=== PATIENT | female | born 1970 | race African-American/Black ===

== ENCOUNTER 2017-04-01 08:51 | Inpatient (IN) ==
[2017-04-01] MEDS ORDERED: HYDROmorphone 2 MG/1 ML VIAL IV STA ×2 (09:19→10:29)
[2017-04-01] MEDS ORDERED: ONDANSETRON 4 MG/2 ML VIAL IV STA (09:19)
[2017-04-01] MEDS ORDERED: HYDROmorphone 2 MG/1 ML VIAL ONE ×2 (09:32→10:31)
[2017-04-01] MEDS ORDERED: ONDANSETRON 4 MG/2 ML VIAL ONE (09:32)
[2017-04-01 10:05] LABS: Basophils % 0.3 % (0.0-0.8); Eosinophils % 0.5 % (0.00-10.9); Hematocrit 32.3 VOL% (35.7-47.0); Hemoglobin 10.4 GM/DL (12.0-16.0); Immature Granulocytes % 1.2 %; Immature Granulocytes Absolute 0.09 #; Lymphocytes # 0.8 10*3/uL (1.4-4.0); Lymphocytes % 10.4 % (21.3-54.2); Mean Corpuscular HGB Conc 32.2 GM/DL (32-36); Mean Corpuscular Hemoglobin 32 PG (27-34); Monocytes # 0.7 10*3/uL (0.11-0.8); Monocytes % 9.9 % (1.7-12.7); Neutrophils # 5.8 10*3/uL (1.4-7.4); Neutrophils % 77.7 % (38.7-73.9); Platelet Count 146 T/CUMM (130-400); Red Blood Count 3.23 MC/CUMM (3.8-5.5); Red Cell Distribution Width 15.9 % (9.3-17.3); White Blood Count 7.4 T/CUMM (4-12)
--- NOTE | 2017-04-01 10:06 | XRay Report ---
Portable chest Date: 04/01/2017 Clinical history: Generalized abdominal pain Comparison: 10/02/2014 Technique: Portable AP sitting chest Findings: The heart is borderline in size. Calcified granulomata/nodes with minimal atelectasis at the lung bases. Stable mediastinum and osseous structures. Impression: Old healed granulomatous disease. Minimal atelectasis at the lung bases. PROCEDURE INTERPRETED AT [facility] DEPARTMENT OF RADIOLOGY Final Report Signed by: Dr. Osiris Black
[2017-04-01 10:46] LABS: Albumin 2.6 G/DL (3.4-5.0); Bilirubin,Total 0.9 MG/DL (0.2-1.0); Calcium 8.6 MG/DL (8.5-10.1); Osmolality,Calculated 282.8 MOS/KG (273-304); Potassium 3.9 MMOL/L (3.5-5.1); Total Protein 5.6 G/DL (6.4-8.3)
--- NOTE | 2017-04-01 12:03 | Emergency Department Note ---
Oneil Galvez Brittany, am scribing for, and in the presence of, Greg Lewis MD 09:20. Joshua Galvez Doug C, MD, personally performed the services described in this documentation, ascribed by Denise Riggs in my presence, and it is both accurate and complete . Arrival - Arrival Chief Complaint: Abdominal / Flank Pain Stated Complaint: stomach pain, vomiting ED Nursing Triage Note: Lower abd pain onset x 2 days - nausea with no vomiting - pt is peritoneal dialysis daily Mode of Arrival: Wheelchair Limitations: No Limitations Source: Patient, RN Notes Reviewed Time Seen by Provider: 04/01/17 09:02 - History of Present Illness HPI Narrative: Patient's 47-year-old white female presents emergency room complaining of abdominal pain that began 2 days ago. Patient states the pain came steady last night and is associated with nausea, vomiting and diarrhea. Patient has not had any fever or chills associated with it. States she does have a prior history of pancreatitis but states this pain is different. Patient does have chronic renal failure is on chronic peritoneal dialysis and is never had peritonitis before. She states her last dialysis it was clear when she drained it. She is not seen any blood in her stool or melena. She has not had any hematemesis. She does have a past medical history of lupus. Onset (ago): day(s) (2) Consistency: constant Severity: moderate Severity scale (1-10): 6 Quality: sharp Date of Last Menstrual Period: celi Allergies/Adverse Reactions: Allergies Allergy/AdvReac Type Severity Reaction Status Date / Time Sulfa (Sulfonamide Allergy Mild ITCHING Verified 04/13/16 06:08 Antibiotics) dapsone AdvReac Severe PT STATES Verified 04/13/16 06:08 SHE HAD TO HAVE BLOOD TRANSFUSION AFTER TAKING Home Medications: Home Medications Medication Instructions Recorded Confirmed Type Metoprolol Tartrate 25 mg PO BID 02/12/15 04/01/17 History Omeprazole 20 mg PO QAM 02/12/15 04/01/17 History Biotin 10,000 mcg PO QAM 03/30/16 04/01/17 History fentaNYL [Fentanyl 25 mcg/hr Patch] 1 patch TRANSDERM Q3DAY 04/13/16 04/01/17 History ARIPiprazole [Aripiprazole] 5 mg PO BEDTIME 04/01/17 04/01/17 History Calcitriol 0.25 mcg PO TID 04/01/17 04/01/17 History Ferrous Fumarate [Ferrimin 150] 456 mg PO QAM 04/01/17 04/01/17 History Loratadine Tab [Claritin Tab] 10 mg PO BEDTIME PRN 04/01/17 04/01/17 History Melatonin 10 mg PO BEDTIME 04/01/17 04/01/17 History Oxycodone HCl [Oxycodone HCl] 10 mg PO TID PRN 04/01/17 04/01/17 History Prorenal D Tablet 1 tablet PO DAILY 04/01/17 04/01/17 History Sevelamer Carbonate Tab [Renvela 2,400 mg PO TID W/MEALS 04/01/17 04/01/17 History Tab] Sevelamer Carbonate Tab [Renvela 800 mg PO WITH SNACKS 04/01/17 04/01/17 History Tab] Vitamin E Acetate [Vitamin E] 1,000 unit PO QAM 04/01/17 04/01/17 History Vortioxetine Hydrobromide 10 mg PO BEDTIME 04/01/17 04/01/17 History [Trintellix] Zolpidem Tartrate [Zolpidem 12.5 mg PO BEDTIME 04/01/17 04/01/17 History Tartrate ER] predniSONE TAB [PredniSONE] 7.5 mg PO QAM 04/01/17 04/01/17 History Review of System - Review of System 12 point system: reviewed and no additional remarkable complaints except as stated - Review of System Constitutional: Present: fever. Absent: chills Eyes: Absent: vision change Head/Ears/Nose/Throat: Absent: nasal drainage, sore throat Respiratory: Absent: respiratory distress Cardiovascular: Absent: chest pain Gastrointestinal: Present: abdominal pain, nausea, diarrhea. Absent: vomiting, melena, hematochezia Genitourinary female: Absent: dysuria, frequency, urgency Musculoskeletal: Absent: arm pain, back pain, leg pain, neck pain Skin: Absent: rash Neurological: Absent: headache Psychiatric: Absent: anxiety, depression Hematological/Lymphatic: Absent: easy bleeding, easy bruising Medical,Surgical,& Family Hx - Medical History Cardio: History of: Hypertension Psychological: History of: Depression Neurology: History of: Peripheral Neuropathy No history of: Seizures HEENT: History of: Ear Problem (HEARING DIFFICULTY), Eye Problem (GLASSES) Rheumatology: History of;: Systemic Lupus Erythematosus Respiratory: History of: Pulmonary Hypertension (2014) Renal: History of: Dialysis (peritoneal), Renal Failure, Renal Problems (KIDNEY DISEASE;) Gastrointestinal: History of: GERD Musculoskeletal: History of: Osteoporosis Hematology: History of: Anemia, Clotting Problems (BLOOD CLOTS IN LUNG) Reproductive: History of: Reproductive Problems (1 MISSCARIAGE) Other: History of: Anesthesia Reactions (PT STATES SHE COULD NOT FEEL LEGS FOR 3 DAYS AFTER PAST ANESTHESIA) - Surgical History Abdominal Surgeries: Surgical HX of: Abdominal Surgery, Cholecystectomy Reproductive Surgeries: Surgical HX of;: Section (3 C SECTIONS), Dilation and Curettage, Genitourinary Surgery (KIDNEY BIOPSY), Gynecologic Surgery Orthopedic Surgeries: Surgical HX of;: Total Hip Replacement (LEFT HIP REVISION 2005, Right hip revision 2015) - Family History Family History: Reports;: Family Cancer (DAD), Family Heart Disease (MOM CHF), Family Hypertension (MOM AND DAD) - Social History Smoking Status: Never smoker Frequency of Alcohol Use: None Type of Drug Use: None Exam Vital Signs: Vital Signs Temperature 97.9 F 04/01/17 09:30 Pulse Rate 83 04/01/17 11:15 Respiratory Rate 18 04/01/17 11:15 Blood Pressure 165/100 04/01/17 11:15 O2 Sat by Pulse Oximetry 96 04/01/17 11:15 - General General appearance: alert, in distress (appears uncomfortable secondary to pain) - Head Head exam: Present: atraumatic, normocephalic, normal inspection - Eye Eye exam: Present: normal appearance, PERRL, EOMI - ENT ENT exam: Present: normal exam, normal oropharynx - Neck Neck exam: Present: normal inspection, full ROM, trachea midline - Chest Chest inspection: Present: normal inspection, symmetric chest wall rise - Respiratory Respiratory exam: Present: normal lung sounds bilaterally - Abdominal Exam Abdominal exam: Present: soft, tenderness (diffuse abdominal tenderness to palpation), diminished bowel sounds. Absent: distention, normal bowel sounds - Extremities Exam Extremities exam: Present: normal inspection - Back Exam Back exam: Present: normal inspection - Neurological Exam Neurological exam: Present: alert, oriented X3, CN II-XII intact. Absent: motor sensory deficit - Psychiatric Psychiatric exam: Present: normal affect, normal mood - Skin Skin exam: Present: warm, dry Course Course Narrative: Patient said clinical presentation, laboratory and radiographic findings were discussed with Orly who is covering the hospitalist service. Patient will be seen and evaluated for admission. Results - Labs CBC & BMP: 04/01/17 09:38 04/01/17 09:38 Lab Results: I have reviewed the patients labs Labs: Laboratory Tests 04/01/17 09:38 WBC 7.4 RBC 3.23 L Hgb 10.4 L Hct 32.3 L Plt Count 146 Neut % (Auto) 77.7 H Lymph % (Auto) 10.4 L Lymph # (Auto) 0.8 L Laboratory Tests 04/01/17 09:38 Sodium 137 Potassium 3.9 Chloride 98 Carbon Dioxide 31 Anion Gap 11.9 BUN 40 H Creatinine 10.70 H GFR Calculation 5 BUN/Creatinine Ratio 3.00 L Glucose 103 Calculated Osmolality 282.8 Lactic Acid 2.0 Calcium 8.6 Total Bilirubin 0.90 AST 19 ALT 26 Alkaline Phosphatase 140 H Total Protein 5.6 L Albumin 2.6 L Globulin 3.0 Albumin/Globulin Ratio 0.8 L Amylase 118 H Lipase 100.0 - Diagnostic Findings Procedure: Chest x-ray: report reviewed by me (Old healed granulomatous disease. Minimal atelectasis at the lung bases.), CT Abdomen and Pelvis: report reviewed by me (Ascitic fluid as to be expected with peritoneal dialysis. No evidence of obstruction seen.) Disposition Clinical Impression: Bacterial peritonitis Case discussed with: patient, patient's family Disposition: Still a Patient Condition: Stable Time of Disposition: 12:03
--- NOTE | 2017-04-01 12:15 | CT Report ---
Referring physician: Baljeet Lewis EXAM: CT abdomen and pelvis without contrast DATE: 04/01/2017 COMPARISON: 04/10/2008 REASON: Severe generalized abdominal pain TECHNIQUE: Axial images of the abdomen and pelvis were obtained without the use of contrast. Coronal and sagittal reformatted images were also provided. Total DLP is 580.70 mGy*cm. FINDINGS: Small pleural effusions with adjacent diffuse parenchymal findings. The liver is normal in size with no masses or dilated ducts in patient with prior cholecystectomy. The spleen is enlarged with a splenic index of 899. The pancreas and adrenal glands have an unremarkable appearance. Progressive cortical scarring in the kidneys with renal cysts with some noted to be hyperdense. 15 mm ringlike calcification in the lower pole of the left kidney with central cystic to solid attenuation measurements. No hydronephrosis or definite renal or ureteral calculi. Limited evaluation of the pelvis/urinary bladder due to streak artifact from the bilateral hip replacement. The abdominal aorta is normal in size with no adjacent adenopathy. No significant dilatation of the small bowel. No evidence of diverticulitis with suboptimal demonstration of the appendix. Peritoneal dialysis catheter entering the right abdominal location with the tip of the catheter projecting in the anterior left mid pelvis location. Diffuse fluid in the abdomen and pelvis with minimal free air. Additional finding in the anterior abdominal wall just to the right of midline at the level of the insertion of the peritoneal dialysis catheter. There is air-fluid level within this finding which measures 42 x 40 x 15 mm. The uterus is atrophic in size with suboptimal demonstration of the ovaries. Degenerative changes are noted. IMPRESSION: Small pleural effusions with adjacent atelectasis/infiltration. Prior cholecystectomy and bilateral hip replacement with minimal splenomegaly with a splenic index of 899. Progressive cortical scarring in the kidneys with small renal cysts. Some of the findings appear hyperdense. 15 mm indeterminate calcified lesion in the lower pole of the left kidney. Renal ultrasound may be helpful for further evaluation. Peritoneal dialysis catheter with significant fluid in the abdomen with minimal free air. These findings may be related to the peritoneal dialysis but it is difficult to exclude additional pathology. 42 x 40 x 15 mm soft tissue abnormality in the right anterior lower abdominal wall at the level of the insertion of the peritoneal dialysis catheter. There is an air-fluid level within this finding which can be seen with a superficial abscess. The CT exam was performed using one or more of the following dose reduction techniques: Automated exposure control and adjustment of the mA and/or kV according to patient size. PROCEDURE INTERPRETED AT [facility] DEPARTMENT OF RADIOLOGY Final Report Signed by: Dr. Osiris Black
[2017-04-01] MEDS ORDERED: ONDANSETRON 4 MG/2 ML VIAL IV PRN (12:19)
--- NOTE | 2017-04-01 13:22 | Hospitalist History & Physical ---
<Lisa Princeda - Last Filed: 04/01/17 13:20> Assessment and Plan (1) Bacterial peritonitis Status: Acute Assessment and plan: WBCs were noted at 7.4, however patient had a known notable left shift at 70 7. The patient is afebrile. There is no obvious signs of infection at the time of encounter. Nephrology has already been consult we will obtain peritoneal fluid and sent to lab for analysis per nephrology request. Current Visit: Yes (2) ESRD on peritoneal dialysis Status: Chronic Assessment and plan: The patient reported last peritoneal dialysis treatment on yesterday. She reports that it was uneventful. She reports that the fluid removal was clear. She reported that she had some abdominal pain prior to the start of the treatment however it gradually increased as the day progressed. We will consult nephrology to manage. Current Visit: No History of Present Illness Chief complaint: abdominal pain History of present illness: This is a very pleasant chronically ill 47-year-old female that presented to the ED at [facility] on this afternoon for the evaluation of abdominal pain. Patient has a history significant for: Hypertension, depression, peripheral neuropathy, systemic lupus erythematosus, renal failure, osteoporosis, anemia, pulmonary embolism, and GERD. Patient has a surgical history significant for: Cholecystectomy, section 3, dilatation and curettage, total hip replacement bilaterally, and peritoneal dialysis catheter placement. The patient reported the onset of symptoms 2 days prior to presentation. She is a current peritoneal dialysis patient and was last dialyzed on yesterday. She reported that her dialysis treatment was uneventful and that her fluid removal was clear. Pertinent positives include: Nausea, vomiting, and diarrhea; pertinent negatives include: fever, chills, and syncope. The patient reports a previous history of pancreatitis however does not attribute the symptoms that she is experiencing now to the one she experienced at that time. The pain became increasingly worse overnight; she became alarmed and subsequently presented to the ED for further evaluation. The patient was assessed at the time of ED presentation. Complete blood count was obtained which reported white blood cell count 7.4, hemoglobin 10.4, hematocrit 32.3, platelet count 146. Chemistry profile was obtained which reported his sodium at 137, potassium 3.9, chloride 98, carbon dioxide 31, anion gap 11.9, BUN 40, creatinine 10.70, glucose 103, lactic acid 2.0, calcium 8.6, alkaline phosphatase 140, total protein 5.6, albumin 2.6, amylase 118, lipase 100. Chest x-ray was obtained which reported old healed granulomatous disease and minimal atelectasis at the lung bases. CT abdomen and pelvis reported small pleural effusion with adjacent atelectasis/infiltration. Prior cholecystectomy and bilateral hip replacement with minimal splenomegaly with a splenic index of 899. Progressive cortical scarring in the kidneys with small renal cyst. 15 mm indeterminate calcified lesion in the lower pole of the left kidney. Peritoneal dialysis catheter was significant fluid in the abdomen and minimal free air. 42 x 40 x 15 mm soft tissue abnormality in the right anterior lower abdominal wall at the level of insertion of the peritoneal catheter which was a finding that is commonly associated with a superficial abscess. After brief discussion with and Dr. Rose, the patient will be admitted to the hospitalist services for continuation of care. We will consult nephrology to evaluate and assist during the clinical encounter. Home Medications Medication Instructions Recorded Confirmed Type Metoprolol Tartrate 25 mg PO BID 02/12/15 04/01/17 History Omeprazole 40 mg PO QAM 02/12/15 04/01/17 History Biotin 10,000 mcg PO QAM 03/30/16 04/01/17 History fentaNYL [Fentanyl 25 mcg/hr Patch] 1 patch TRANSDERM Q3DAY 04/13/16 04/01/17 History ARIPiprazole [Aripiprazole] 5 mg PO BEDTIME 04/01/17 04/01/17 History Calcitriol 0.25 mcg PO TID 04/01/17 04/01/17 History Ferrous Fumarate [Ferrimin 150] 456 mg PO QAM 04/01/17 04/01/17 History Loratadine Tab [Claritin Tab] 10 mg PO BEDTIME PRN 04/01/17 04/01/17 History Melatonin 10 mg PO BEDTIME 04/01/17 04/01/17 History Oxycodone HCl [Oxycodone HCl] 10 mg PO TID PRN 04/01/17 04/01/17 History Prorenal D Tablet 1 tablet PO DAILY 04/01/17 04/01/17 History Sevelamer Carbonate Tab [Renvela 2,400 mg PO TID W/MEALS 04/01/17 04/01/17 History Tab] Sevelamer Carbonate Tab [Renvela 800 mg PO WITH SNACKS 04/01/17 04/01/17 History Tab] Vitamin E Acetate [Vitamin E] 1,000 unit PO QAM 04/01/17 04/01/17 History Vortioxetine Hydrobromide 10 mg PO BEDTIME 04/01/17 04/01/17 History [Trintellix] Zolpidem Tartrate [Zolpidem 12.5 mg PO BEDTIME 04/01/17 04/01/17 History Tartrate ER] predniSONE TAB [PredniSONE] 7.5 mg PO QAM 04/01/17 04/01/17 History Allergies Allergy/AdvReac Type Severity Reaction Status Date / Time Sulfa (Sulfonamide Allergy Mild ITCHING Verified 04/13/16 06:08 Antibiotics) dapsone AdvReac Severe PT STATES Verified 04/13/16 06:08 SHE HAD TO HAVE BLOOD TRANSFUSION AFTER TAKING Medical,Surgical,& Family Hx - Medical History Cardio: History of: Hypertension Psychological: History of: Depression Neurology: History of: Peripheral Neuropathy No history of: Seizures HEENT: History of: Ear Problem (HEARING DIFFICULTY), Eye Problem (GLASSES) Rheumatology: History of;: Systemic Lupus Erythematosus Respiratory: History of: Pulmonary Hypertension (2013) Renal: History of: Dialysis (peritoneal), Renal Failure, Renal Problems (KIDNEY DISEASE;) Gastrointestinal: History of: GERD Musculoskeletal: History of: Osteoporosis Hematology: History of: Anemia, Clotting Problems (BLOOD CLOTS IN LUNG) Reproductive: History of: Reproductive Problems (1 MISSCARIAGE) Other: History of: Anesthesia Reactions (PT STATES SHE COULD NOT FEEL LEGS FOR 3 DAYS AFTER PAST ANESTHESIA) - Surgical History Abdominal Surgeries: Surgical HX of: Abdominal Surgery, Cholecystectomy Reproductive Surgeries: Surgical HX of;: Section (3 C SECTIONS), Dilation and Curettage, Genitourinary Surgery (KIDNEY BIOPSY), Gynecologic Surgery Orthopedic Surgeries: Surgical HX of;: Total Hip Replacement (LEFT HIP REVISION 2005, Right hip revision 2016) - Family History Family History: Reports;: Family Cancer (DAD), Family Heart Disease (MOM CHF), Family Hypertension (MOM AND DAD) - Social History Smoking Status: Never smoker Frequency of Alcohol Use: None Type of Drug Use: None Exam - Constitutional Vitals: Period Temp Pulse Resp BP Sys/Murdock Pulse Ox Last 24 Hr 97.9 F-97.9 F 79-88 18-20 145-184/99-119 95-100 General appearance: normal weight, mild distress - Head Head exam: Present: normal inspection, normocephalic, atraumatic - Eye Eye exam: Present: EOMI, conjunctival injection Pupils: Present: BECCA, normal accommodation - ENT ENT exam: Present: normal exam, normal external ear exam, normal oropharynx - Neck Neck exam: Present: normal inspection. Absent: lymphadenopathy, meningismus, tenderness - Respiratory Respiratory exam: Present: clear to auscultation bilaterally. Absent: rales, rhonchi, stridor - Cardiovascular Cardiovascular exam: Present: regular rate and rhythm. Absent: carotid bruit, diastolic murmur, gallop, JVD, rubs, systolic murmur - GI/Abdominal GI/Abdominal exam: Present: normal bowel sounds, tenderness, soft. Absent: rebound - Extremities Exam Extremities exam: Present: normal inspection, normal capillary refill, full ROM - Neurological Exam Neurological exam: Present: alert, oriented X3, CN II-XII intact - Psychiatric Psychiatric exam: Present: normal affect, normal mood - Skin Skin exam: Present: normal color, warm, dry Results - Labs CBC & BMP: 04/01/17 09:38 04/01/17 09:38 Lab Results: I have reviewed the past 24 hour labs <Jareth Rose - Last Filed: 04/01/17 15:49> History of Present Illness History of present illness: Patient seen and examined independently of MARY Prince, agree with history, assessment and plan as documented. Patient on PD admitted with abdominal pain. Questionable peritonitis. Afebrile with no leukocytosis. Peritoneal fluid pending. Nephrology on board. Will defer to nephrology for initiation of antibiotics if warranted. Patient is hypertensive, will restart home medications. Exam - Constitutional Vitals: Period Temp Pulse Resp BP Sys/Murdock Pulse Ox Last 24 Hr 97.9 F-97.9 F 79-88 18-20 145-184/99-119 95-100 Results - Labs CBC & BMP: 04/01/17 09:38 04/01/17 09:38
[2017-04-01] MEDS ORDERED: LORATADINE 10 MG TABLET PO PRN (14:27)
[2017-04-01] MEDS ORDERED: oxyCODONE IR 5 MG TABLET PO PRN (14:27)
[2017-04-01] MEDS ORDERED: SEVELAMER CARBONATE 800 MG TABLET PO SCH (14:30)
[2017-04-01] MEDS: METOPROLOL TARTRATE 25 MG TABLET PO SCH ×2 (14:47→21:01)
[2017-04-01] MEDS: ONDANSETRON 4 MG/2 ML VIAL IV PRN ×2 (14:47→20:08)
[2017-04-01] MEDS ORDERED: fentaNYL 25 MCG/HR PATCH TRANSDERM SCH (15:00)
[2017-04-01] MEDS ORDERED: MORPHINE 2 MG/1 ML SYRINGE IV PRN (16:06)
[2017-04-01] MEDS: SEVELAMER CARBONATE 800 MG TABLET PO SCH (16:41)
[2017-04-01] MEDS: HYDROmorphone 2 MG/1 ML VIAL IV PRN ×2 (17:37→22:36)
--- NOTE | 2017-04-01 20:02 | Nephrology Consult Note ---
History of Present Illness Chief complaint: ESRD ,abdominal pain History of present illness: Ms. Jin is a 47 year old female with ESRD. She is on peritoneal dialysis. She reports a 2 day history of abdominal pain nausea and diarrhea. She denies fever or chills. She denies pain during fill or drain cycles of PD. PD fluid has remained clear. No shortness of breath. Home Medications Medication Instructions Recorded Confirmed Type Metoprolol Tartrate 25 mg PO BID 02/12/15 04/01/17 History Omeprazole 40 mg PO QAM 02/12/15 04/01/17 History Biotin 10,000 mcg PO QAM 03/30/16 04/01/17 History fentaNYL [Fentanyl 25 mcg/hr Patch] 1 patch TRANSDERM Q3DAY 04/13/16 04/01/17 History ARIPiprazole [Aripiprazole] 5 mg PO BEDTIME 04/01/17 04/01/17 History Calcitriol 0.25 mcg PO TID 04/01/17 04/01/17 History Ferrous Fumarate [Ferrimin 150] 456 mg PO QAM 04/01/17 04/01/17 History Loratadine Tab [Claritin Tab] 10 mg PO BEDTIME PRN 04/01/17 04/01/17 History Melatonin 10 mg PO BEDTIME 04/01/17 04/01/17 History Oxycodone HCl [Oxycodone HCl] 10 mg PO TID PRN 04/01/17 04/01/17 History Prorenal D Tablet 1 tablet PO DAILY 04/01/17 04/01/17 History Sevelamer Carbonate Tab [Renvela 2,400 mg PO TID W/MEALS 04/01/17 04/01/17 History Tab] Sevelamer Carbonate Tab [Renvela 800 mg PO WITH SNACKS 04/01/17 04/01/17 History Tab] Vitamin E Acetate [Vitamin E] 1,000 unit PO QAM 04/01/17 04/01/17 History Vortioxetine Hydrobromide 10 mg PO BEDTIME 04/01/17 04/01/17 History [Trintellix] Zolpidem Tartrate [Zolpidem 12.5 mg PO BEDTIME 04/01/17 04/01/17 History Tartrate ER] predniSONE TAB [PredniSONE] 7.5 mg PO QAM 04/01/17 04/01/17 History Allergies Allergy/AdvReac Type Severity Reaction Status Date / Time Sulfa (Sulfonamide Allergy Mild ITCHING Verified 04/13/16 06:08 Antibiotics) dapsone AdvReac Severe PT STATES Verified 04/13/16 06:08 SHE HAD TO HAVE BLOOD TRANSFUSION AFTER TAKING Medical,Surgical,& Family Hx - Medical History Cardio: History of: Hypertension Psychological: History of: Depression Neurology: History of: Peripheral Neuropathy No history of: Seizures HEENT: History of: Ear Problem (HEARING DIFFICULTY), Eye Problem (GLASSES) Rheumatology: History of;: Systemic Lupus Erythematosus Respiratory: History of: Pulmonary Hypertension (2013) Renal: History of: Dialysis (peritoneal), Renal Failure, Renal Problems (KIDNEY DISEASE;) Gastrointestinal: History of: GERD Musculoskeletal: History of: Osteoporosis Hematology: History of: Anemia, Clotting Problems (BLOOD CLOTS IN LUNG) Reproductive: History of: Reproductive Problems (1 MISSCARIAGE) Other: History of: Anesthesia Reactions (PT STATES SHE COULD NOT FEEL LEGS FOR 3 DAYS AFTER PAST ANESTHESIA) - Surgical History Abdominal Surgeries: Surgical HX of: Abdominal Surgery, Cholecystectomy Reproductive Surgeries: Surgical HX of;: Section (3 C SECTIONS), Dilation and Curettage, Genitourinary Surgery (KIDNEY BIOPSY), Gynecologic Surgery Orthopedic Surgeries: Surgical HX of;: Total Hip Replacement (LEFT HIP REVISION 2005, Right hip revision 2016) - Family History Family History: Reports;: Family Cancer (DAD), Family Heart Disease (MOM CHF), Family Hypertension (MOM AND DAD) - Social History Smoking Status: Never smoker Frequency of Alcohol Use: None Type of Drug Use: None Review of Systems 12 point system: reviewed and no additional remarkable complaints except as stated Exam - Vital Signs Vital signs: Period Temp Pulse Resp BP Sys/Murdock Pulse Ox Last 24 Hr 97.9 F-99.3 F 79-88 18-20 145-184/97-119 95-100 Exam: Gen.: Alert and oriented x3. ENT: Pupils equal round reactive to light. EOMs intact. Mucous membranes moist. Neck: Supple. No JVD or bruit. Cardiovascular: Regular rate and rhythm. No murmur rub or gallop Lungs: Clear Abdomen: Soft. Mild diffuse tenderness. No rebound Extremities: No edema Results - Labs CBC & BMP: 04/01/17 09:38 04/01/17 09:38 Assessment and Plan (1) ESRD on peritoneal dialysis Status: Chronic Assessment and plan: 47-year-old woman with: * ESRD. Volume status normal. Continue peritoneal dialysis with 1.5% exchanges * Abdominal pain. She has no rebound tenderness. PD fluid white cell count 26. This is not clinically consistent with peritonitis. She likely has viral gastroenteritis. PD fluid culture is pending * Lupus * Hypertension Current Visit: No (2) Abdominal pain Status: Acute Current Visit: Yes (3) HTN (hypertension) Status: Acute Current Visit: No (4) Lupus Status: Acute Current Visit: No
[2017-04-01] MEDS ORDERED: ZALEPLON 5 MG CAPSULE PO SCH (21:00)
[2017-04-01] MEDS ORDERED: MELATONIN 3 MG TABLET PO SCH (21:00)
[2017-04-01] MEDS ORDERED: NON-FORMULARY MEDICATION (Vortioxetine Hydrobromide [Trintellix] 10 MG) PO SCH (21:00)
[2017-04-01] MEDS ORDERED: ARIPiprazole 5 MG TABLET PO SCH (21:00)
[2017-04-02] MEDS: HYDROmorphone 2 MG/1 ML VIAL IV PRN ×3 (03:30→15:51)
[2017-04-02] MEDS ORDERED: ACETAMINOPHEN 325 MG TABLET PO PRN (04:12)
[2017-04-02 04:26] LABS: Basophils % 0.3 % (0.0-0.8); Eosinophils % 0.3 % (0.00-10.9); Hematocrit 31.6 VOL% (35.7-47.0); Hemoglobin 9.9 GM/DL (12.0-16.0); Immature Granulocytes % 1.6 %; Immature Granulocytes Absolute 0.11 #; Lymphocytes # 1.4 10*3/uL (1.4-4.0); Lymphocytes % 21.4 % (21.3-54.2); Mean Corpuscular HGB Conc 31.3 GM/DL (32-36); Mean Corpuscular Hemoglobin 32 PG (27-34); Mean Corpuscular Volume 100.6 FL (87-102); Mean Platelet Volume 10.7 FL (9.6-12.0); Monocytes # 0.7 10*3/uL (0.11-0.8); Monocytes % 10.6 % (1.7-12.7); Neutrophils # 4.4 10*3/uL (1.4-7.4); Neutrophils % 65.8 % (38.7-73.9); Platelet Count 132 T/CUMM (130-400); Red Blood Count 3.14 MC/CUMM (3.8-5.5); Red Cell Distribution Width 15.9 % (9.3-17.3); White Blood Count 6.7 T/CUMM (4-12)
[2017-04-02 04:57] LABS: Albumin 2.2 G/DL (3.4-5.0); Bilirubin,Total 0.5 MG/DL (0.2-1.0); Calcium 7.8 MG/DL (8.5-10.1); Magnesium 1.5 MG/DL (1.8-2.4); Osmolality,Calculated 284.7 MOS/KG (273-304); Total Protein 4.8 G/DL (6.4-8.3)
[2017-04-02] MEDS: SEVELAMER CARBONATE 800 MG TABLET PO SCH ×2 (08:56→12:34)
[2017-04-02] MEDS: METOPROLOL TARTRATE 25 MG TABLET PO SCH (08:57)
[2017-04-02] MEDS ORDERED: PANTOPRAZOLE 40 MG TABLET PO SCH (09:00)
[2017-04-02] MEDS ORDERED: predniSONE 5 MG TABLET PO SCH (09:00)
[2017-04-02] MEDS ORDERED: FERROUS FUMARATE PO SCH (09:00)
--- NOTE | 2017-04-02 13:25 | Hospitalist Progress Note ---
Assessment and Plan (1) ESRD on peritoneal dialysis Status: Chronic Assessment and plan: Nephrology managing Undergoing PD during admission Current Visit: No (2) Abdominal pain Status: Acute Assessment and plan: Afebrile, no leukocytosis or left shift Cell count inconsistent with peritonitis Possible gastroenteritis Monitor for now Current Visit: Yes Hospitalist: Subjective Interval history: No acute events overnight. She reports that her abdominal pain is better, tolerable now. Nausea is resolved. Patient's temp did rise to 100.3, which is technically not a fever. Exam - Constitutional Vitals: Period Temp Pulse Resp BP Sys/Murdock Pulse Ox Last 24 Hr 98.4 F-100.3 F 66-86 18-20 104-163/73-97 96-100 General appearance: over weight - Head Head exam: Present: normocephalic, atraumatic - Eye Eye exam: Present: EOMI Pupils: Present: BECCA - ENT ENT exam: Present: normal exam - Neck Neck exam: Present: normal inspection - Respiratory Respiratory exam: Present: clear to auscultation bilaterally. Absent: wheezes - Cardiovascular Cardiovascular exam: Present: regular rate and rhythm - GI/Abdominal GI/Abdominal exam: Present: normal bowel sounds, soft. Absent: tenderness, rebound - Extremities Exam Extremities exam: Present: normal inspection - Back Exam Back exam: Present: normal inspection - Neurological Exam Neurological exam: Present: alert, oriented X3 - Psychiatric Psychiatric exam: Present: normal affect, normal mood - Skin Skin exam: Present: warm, intact Results - Labs CBC & BMP: 04/02/17 03:29 04/02/17 03:29
--- NOTE | 2017-04-02 14:06 | Nephrology Progress Note ---
Nephrology - PN: Subj Interval history: Ms. Jin is seen in follow-up of her end-stage renal disease on peritoneal dialysis. She presented with abdominal pain and peritonitis is been ruled out. The abdomen is much better today and she is feeling much better. Her abdomen is soft nontender. She has children in the room and her and hopes to be able to go home. As far as were concerned I think that would be reasonable. She can continue to follow up in the outpatient peritoneal dialysis clinic. Exam (PN)-Nephrology - Vital Signs Vital signs: Period Temp Pulse Resp BP Sys/Murdock Pulse Ox Last 24 Hr 98.4 F-100.3 F 66-86 18-20 104-163/73-97 96-100 - Lab 04/02/17 03:29 04/02/17 03:29 Most recent lab results Calcium 7.8 MG/DL (8.5-10.1) L 04/02/17 03:29 Magnesium 1.5 MG/DL (1.8-2.4) L 04/02/17 03:29
--- NOTE | 2017-04-02 14:39 | Discharge Summary ---
Hospital Course - Hospital Course Hospital Course: 47-year-old female that presented to the ED at [facility] for the evaluation of abdominal pain. Patient has a history significant for: Hypertension, depression, peripheral neuropathy, systemic lupus erythematosus, renal failure, osteoporosis, anemia, pulmonary embolism, and GERD. Patient has a surgical history significant for: Cholecystectomy, section 3, dilatation and curettage, total hip replacement bilaterally, and peritoneal dialysis catheter placement. The patient reported the onset of symptoms 2 days prior to presentation. She is a current peritoneal dialysis patient and was last dialyzed the day prior. She reported that her dialysis treatment was uneventful and that her fluid removal was clear. Pertinent positives include: Nausea, vomiting, and diarrhea; pertinent negatives include: fever, chills, and syncope. The patient reported a previous history of pancreatitis however does not attribute the symptoms that she is experiencing now to the ones she experienced at that time. The pain became increasingly worse overnight; she became alarmed and subsequently presented to the ED for further evaluation. The patient was assessed at the time of ED presentation. Complete blood count was obtained which reported white blood cell count 7.4, hemoglobin 10.4, hematocrit 32.3, platelet count 146. Chemistry profile was obtained which reported his sodium at 137, potassium 3.9, chloride 98, carbon dioxide 31, anion gap 11.9, BUN 40, creatinine 10.70, glucose 103, lactic acid 2.0, calcium 8.6, alkaline phosphatase 140, total protein 5.6, albumin 2.6, amylase 118, lipase 100. Chest x-ray was obtained which reported old healed granulomatous disease and minimal atelectasis at the lung bases. CT abdomen and pelvis reported small pleural effusion with adjacent atelectasis/infiltration. Prior cholecystectomy and bilateral hip replacement with minimal splenomegaly with a splenic index of 899. Progressive cortical scarring in the kidneys with small renal cyst. 15 mm indeterminate calcified lesion in the lower pole of the left kidney. Peritoneal dialysis catheter was significant fluid in the abdomen and minimal free air. 42 x 40 x 15 mm soft tissue abnormality in the right anterior lower abdominal wall at the level of insertion of the peritoneal catheter. Patient was admitted to the hospitalist service for abdominal pain to rule out peritonitis. She remained afebrile without leukocytosis. Peritoneal fluid was obtained and was not consistent with an infectious process. Today patient is doing much better with improvement in abdominal pain and resolution of nausea. She is tolerating a diet without incidence. Her symptoms were most likely related to gastroenteritis. She has now reached maximal benefit of inpatient stay and will be discharged home. - Time spent with patient Time with patient DS: Less than 30 minutes (28) Diagnosis - Discharge Diagnosis (1) ESRD on peritoneal dialysis Status: Chronic (2) Abdominal pain Status: Resolved Discharge Plan - Discharge Data Disposition: Disch To Home/Self Care Condition at Discharge: Stable Discharge Diet: low salt diet Activity: resume usual activities as tolerated Hygiene: no restrictions Weight Bearing at Discharge: weight bear as tolerated Driving: no restrictions Contact your physician if you experience:: fever over 101, pain uncontrolled by pain medications - Discharge Medications Continue Omeprazole 40 mg PO QAM Metoprolol Tartrate 25 mg PO BID Biotin 10,000 mcg PO QAM fentaNYL [Fentanyl 25 mcg/hr Patch] 1 patch TRANSDERM Q3DAY ARIPiprazole [Aripiprazole] 5 mg PO BEDTIME Calcitriol 0.25 mcg PO TID Ferrous Fumarate [Ferrimin 150] 456 mg PO QAM Loratadine Tab [Claritin Tab] 10 mg PO BEDTIME PRN PRN Reason: Allergy Symptoms Melatonin 10 mg PO BEDTIME predniSONE TAB [PredniSONE] 7.5 mg PO QAM Prorenal D Tablet 1 tablet PO DAILY Sevelamer Carbonate Tab [Renvela Tab] 800 mg PO WITH SNACKS Sevelamer Carbonate Tab [Renvela Tab] 2,400 mg PO TID W/MEALS Vitamin E Acetate [Vitamin E] 1,000 unit PO QAM Zolpidem Tartrate [Zolpidem Tartrate ER] 12.5 mg PO BEDTIME Oxycodone HCl 10 mg PO TID PRN PRN Reason: Pain Vortioxetine Hydrobromide [Trintellix] 10 mg PO BEDTIME - Follow Up or Referral - Forms/Instructions Exam - Constitutional Vitals: Period Temp Pulse Resp BP Sys/Murdock Pulse Ox Last 24 Hr 98.4 F-100.3 F 66-86 18-20 104-163/73-97 96-100 General appearance: normal weight - Head Head exam: Present: normocephalic, atraumatic - Eye Eye exam: Present: EOMI Pupils: Present: BECCA - ENT ENT exam: Present: normal exam - Neck Neck exam: Present: normal inspection - Respiratory Respiratory exam: Present: clear to auscultation bilaterally. Absent: rhonchi, wheezes - Cardiovascular Cardiovascular exam: Present: regular rate and rhythm - GI/Abdominal GI/Abdominal exam: Present: normal bowel sounds, soft. Absent: tenderness, rebound - Extremities Exam Extremities exam: Present: normal inspection - Back Exam Back exam: Present: normal inspection - Neurological Exam Neurological exam: Present: alert, oriented X3 - Psychiatric Psychiatric exam: Present: normal affect, normal mood - Skin Skin exam: Present: warm, intact Discharge Results Procedures and tests throughout hospitalization: Pending Orders 04/01/17 09:38 Blood Culture Stat 04/01/17 12:47 Body Fluid Cult and Gram Stain Stat 04/03/17 04:00 Basic Metabolic Panel w/Mg IN AM Comp Blood Count Auto Diff IN AM Labs on day of discharge: Labs from last 24 hours 04/02/17 04/02/17 03:29 03:29 WBC 6.7 RBC 3.14 L Hgb 9.9 L Hct 31.6 L MCV 100.6 MCH 32 MCHC 31.3 L RDW 15.9 Plt Count 132 MPV 10.7 Neut % (Auto) 65.8 Lymph % (Auto) 21.4 [place] % (Auto) 10.6 Eos % (Auto) 0.3 Baso % (Auto) 0.3 Neut # (Auto) 4.4 Lymph # (Auto) 1.4 [place] # (Auto) 0.7 Eos # (Auto) 0.0 Baso # (Auto) 0.0 Immature Gran % 1.6 Nucleated RBC % 0.0 Immature Gran # 0.11 Nucleated RBCs # 0.00 Sodium 138 Potassium 4.0 Chloride 98 Carbon Dioxide 31 Anion Gap 13.0 BUN 40 H Creatinine 10.60 H GFR Calculation 5 BUN/Creatinine Ratio 3.00 L Glucose 92 Calculated Osmolality 284.7 Calcium 7.8 L Magnesium 1.5 L Total Bilirubin 0.50 AST 20 ALT 25 Alkaline Phosphatase 127 H Total Protein 4.8 L Albumin 2.2 L Globulin 2.6 Albumin/Globulin Ratio 0.8 L Preliminary micro results at discharge 04/01/17 09:38 Blood Culture - Preliminary Blood No growth at 1 day 04/01/17 09:38 Blood Culture - Preliminary Blood No growth at 1 day 04/01/17 12:47 Body Fluid Culture - Preliminary Peritoneal Fluid - Peritoneal No growth at 24 hours DS: Provider Date of admission: 04/01/17 12:04 Primary care physician: . No PCP Attending physician on admission: Jareth Rose MD Consults: 04/01/17 12:11 Consult to Physician [CONS] Routine Comment: Consulting Provider: Trevor Mei When should Consulting Provider be notified: Now Person Notified: RAYNE Date Notified: 04/02/17 Time Notified: 09:00 Discharging clinician: Jareth Rose MD
[2017-04-02 16:38] VITALS: BP 131/73
[2017-04-03] MEDS ORDERED: MULTIVITAMIN (BEROCCA) TABLET PO SCH (09:00)
== END 2017-04-02 17:04 | disposition home or self-care (01) | DRG 391 ==
LOC: N.ED 08:51 → N.EDINP 12:04 → N.5E 13:24
PROVIDERS: ADMIT Internal Medicine; ATTEND Internal Medicine

== ENCOUNTER 2017-07-03 17:25 | Observation (INO) ==
[2017-07-03] MEDS ORDERED: MORPHINE 2 MG/1 ML SYRINGE IV STA (19:11)
[2017-07-03] MEDS ORDERED: NITROGLYCERIN 2% OINT 1 INCH/GM PACK TOP STA (19:11)
[2017-07-03] MEDS ORDERED: ASPIRIN 325 MG TABLET PO STA (19:11)
[2017-07-03] MEDS ORDERED: methylPREDNISolone SOD SUC 125 MG/2 ML VIAL IV STA (19:11)
[2017-07-03] MEDS ORDERED: ALUM/MAG/SIMETH/LIDO VISC 1:1 30 ML BOTTLE PO STA (19:11)
[2017-07-03] MEDS ORDERED: ONDANSETRON 4 MG/2 ML VIAL IV STA (19:11)
[2017-07-03 19:22] LABS: Basophils % 0.4 % (0.0-0.8); Eosinophils # 0.3 10*3/uL (0.0-0.87); Eosinophils % 2.8 % (0.00-10.9); Hematocrit 38.5 VOL% (35.7-47.0); Hemoglobin 11.2 GM/DL (12.0-16.0); Immature Granulocytes % 1.3 %; Immature Granulocytes Absolute 0.14 #; Lymphocytes # 1.9 10*3/uL (1.4-4.0); Lymphocytes % 17.2 % (21.3-54.2); Mean Corpuscular HGB Conc 29.1 GM/DL (32-36); Mean Corpuscular Hemoglobin 26 PG (27-34); Mean Corpuscular Volume 88.7 FL (87-102); Mean Platelet Volume 11.2 FL (9.6-12.0); Monocytes # 0.5 10*3/uL (0.11-0.8); Monocytes % 4.4 % (1.7-12.7); NRBC # 0.02 10*3/uL; Neutrophils % 73.9 % (38.7-73.9); Platelet Count 239 T/CUMM (130-400); Red Blood Count 4.34 MC/CUMM (3.8-5.5); Red Cell Distribution Width 19.3 % (9.3-17.3); White Blood Count 10.8 T/CUMM (4-12)
--- NOTE | 2017-07-03 19:29 | Emergency Department Note ---
Keegan Galvez Gwan, am scribing for, and in the presence of, Layo Lockhart MD 19 :26. Richy Galvez Charles R, MD, personally performed the services described in this documentation, ascribed by Tyrell Allison in my presence, and it is both accurate and complete 929 . Arrival - Arrival Chief Complaint: Chest Pain Stated Complaint: Chest Pain ED Nursing Triage Note: c/o sharp pain across chest onset 6 days ago. worse with laying down Mode of Arrival: Ambulatory Limitations: No Limitations Source: Patient, Old Records Reviewed, RN Notes Reviewed Time Seen by Provider: 07/03/17 19:03 - History of Present Illness HPI Narrative: Patient is a 47 y/o female, with a hx of Lupus and renal failure, who presents to the ED with a c/o chest pain with an onset of 6 days ago. Patient stated that pain is exacerbated with laying flat and deep inspirations. Patient said that her pain is located across the center of her chest, that the pain feels more "deep inside" and that she has also had associated SOB. Patient confirmed that she is on dialysis (M/W/F), that she was compliant with tx yesterday and that she changed her dosage of Prednisone from 5mg to 20mg with no relief of chest pain. Patient denies a bad taste in her mouth, nausea, diaphoresis, any heart problems or taking a low dose ASA daily. Patient is followed by Dr. Diehl. During exam, pt did not appear to be in any acute distress but stated that she is currently having chest pain. No other problems/complaints reported in ED. Onset (ago): day(s) Consistency: constant Severity: moderate Allergies/Adverse Reactions: Allergies Allergy/AdvReac Type Severity Reaction Status Date / Time Sulfa (Sulfonamide Allergy Mild ITCHING Verified 04/13/16 06:08 Antibiotics) dapsone AdvReac Severe PT STATES Verified 04/13/16 06:08 SHE HAD TO HAVE BLOOD TRANSFUSION AFTER TAKING Home Medications: Home Medications Medication Instructions Recorded Confirmed Type Metoprolol Tartrate 25 mg PO BID 02/12/15 07/03/17 History Omeprazole 40 mg PO QAM 02/12/15 07/03/17 History Biotin 10,000 mcg PO QAM 03/30/16 07/03/17 History fentaNYL [Fentanyl 25 mcg/hr Patch] 1 patch TRANSDERM Q3DAY 04/13/16 07/03/17 History ARIPiprazole [Aripiprazole] 5 mg PO BEDTIME 04/01/17 07/03/17 History Calcitriol 0.25 mcg PO TID 04/01/17 07/03/17 History Ferrous Fumarate [Ferrimin 150] 456 mg PO QAM 04/01/17 07/03/17 History Loratadine Tab [Claritin Tab] 10 mg PO QAM PRN 04/01/17 07/03/17 History Melatonin 10 mg PO BEDTIME 04/01/17 07/03/17 History Oxycodone HCl 10 mg PO TID PRN 04/01/17 07/03/17 History Prorenal D Tablet 1 tablet PO QAM 04/01/17 07/03/17 History Sevelamer Carbonate Tab [Renvela 2,400 mg PO TID W/MEALS 04/01/17 07/03/17 History Tab] Sevelamer Carbonate Tab [Renvela 800 mg PO WITH SNACKS 04/01/17 07/03/17 History Tab] Vortioxetine Hydrobromide 10 mg PO BEDTIME 04/01/17 07/03/17 History [Trintellix] Zolpidem Tartrate [Zolpidem 12.5 mg PO BEDTIME 04/01/17 07/03/17 History Tartrate ER] Doxepin HCl [Silenor] 3 mg PO BEDTIME 07/03/17 07/03/17 History NIFEdipine [Nifedipine ER] 30 mg PO QAM 07/03/17 07/03/17 History predniSONE TAB [PredniSONE] 5 mg PO QAM 07/03/17 07/03/17 History Review of System - Review of System 12 point system: reviewed and no additional remarkable complaints except as stated - Review of System Cardiovascular: Present: as per HPI, chest pain Gastrointestinal: Present: as per HPI. Absent: nausea, vomiting, diarrhea Medical,Surgical,& Family Hx - Medical History Cardio: History of: Hypertension Psychological: History of: Depression Neurology: History of: Peripheral Neuropathy No history of: Seizures HEENT: History of: Ear Problem (HEARING DIFFICULTY), Eye Problem (GLASSES) Rheumatology: History of;: Systemic Lupus Erythematosus Respiratory: History of: Pulmonary Hypertension (2013) Renal: History of: Dialysis (peritoneal), Renal Failure, Renal Problems (KIDNEY DISEASE;) Gastrointestinal: History of: GERD Musculoskeletal: History of: Osteoporosis Hematology: History of: Anemia, Clotting Problems (BLOOD CLOTS IN LUNG) Reproductive: History of: Reproductive Problems (1 MISSCARIAGE) Other: History of: Anesthesia Reactions (PT STATES SHE COULD NOT FEEL LEGS FOR 3 DAYS AFTER PAST ANESTHESIA) - Surgical History Abdominal Surgeries: Surgical HX of: Abdominal Surgery, Cholecystectomy Reproductive Surgeries: Surgical HX of;: Section (3 C SECTIONS), Dilation and Curettage, Genitourinary Surgery (KIDNEY BIOPSY), Gynecologic Surgery Orthopedic Surgeries: Surgical HX of;: Total Hip Replacement (LEFT HIP REVISION 2005, Right hip revision 2015) - Family History Family History: Reports;: Family Cancer (DAD), Family Heart Disease (MOM CHF), Family Hypertension (MOM AND DAD) - Social History Smoking Status: Never smoker Frequency of Alcohol Use: None Type of Drug Use: None Exam Vital Signs: Vital Signs Temperature 97.7 F 07/03/17 17:39 Pulse Rate 85 07/03/17 17:39 Respiratory Rate 18 07/03/17 17:39 Blood Pressure 147/101 07/03/17 17:39 O2 Sat by Pulse Oximetry 100 07/03/17 17:39 - General General appearance: alert, in no apparent distress - Head Head exam: Present: atraumatic, normocephalic - Eye Eye exam: Present: normal appearance, PERRL, EOMI - ENT ENT exam: Present: normal oropharynx, mucous membranes moist, TM's normal bilaterally, normal external ear exam - Neck Neck exam: Present: full ROM, trachea midline. Absent: tenderness - Chest Chest inspection: Present: symmetric chest wall rise, tenderness (Patient had reproducible chest wall tenderness. ) - Respiratory Respiratory exam: Present: normal lung sounds bilaterally. Absent: respiratory distress - Cardiovascular Cardiovascular exam: Present: regular rate, normal rhythm, normal heart sounds. Absent: murmur - Abdominal Exam Abdominal exam: Present: soft, normal bowel sounds. Absent: distention, tenderness - Extremities Exam Extremities exam: Present: full ROM. Absent: tenderness - Back Exam Back exam: Present: full ROM. Absent: tenderness - Neurological Exam Neurological exam: Present: alert, oriented X3, CN II-XII intact. Absent: motor sensory deficit - Psychiatric Psychiatric exam: Present: normal affect, normal mood - Skin Skin exam: Present: warm, dry, intact, normal color Course - Consultations Consultation #1: Hospitalist will admit patient Time: 20:35 Results - Labs CBC & BMP: 07/03/17 18:34 07/03/17 18:34 Lab Results: I have reviewed the patients labs Labs: Laboratory Tests 07/03/17 07/03/17 07/03/17 18:34 18:34 18:34 WBC 10.8 RBC 4.34 Hgb 11.2 L Hct 38.5 MCH 26 L MCHC 29.1 L RDW 19.3 H Plt Count 239 Lymph % (Auto) 17.2 L Neut # (Auto) 8.0 H INR 1.0 PT Patient/Control Mix 10.4 D-Dimer, Quantitative 2.0 Sodium 137 Potassium 3.9 Chloride 100 Carbon Dioxide 26 BUN 23 H Creatinine 5.60 H BUN/Creatinine Ratio 4.00 L Calcium 10.5 H ALT 12 L Alkaline Phosphatase 171 H Albumin 2.8 L Globulin 3.8 H Albumin/Globulin Ratio 0.7 L Lipase 210.0 Laboratory Tests 07/03/17 18:34 B-Natriuretic Peptide 639 H - Diagnostic Findings Procedure: Chest x-ray: report reviewed by me (No acute cardiopulmonary findings. ) Disposition Clinical Impression: Chest pain, Chronic renal failure, Lupus, ESRD (end-stage renal disease) due to SLE, ESRD (end stage renal disease) on dialysis, Hypertensive urgency Case discussed with: patient, patient's family Disposition: Still a Patient Condition: Stable Time of Disposition: 20:38
[2017-07-03 19:31] LABS: Albumin 2.8 G/DL (3.4-5.0); Bilirubin,Total 0.5 MG/DL (0.2-1.0); Calcium 10.5 MG/DL (8.5-10.1); Osmolality,Calculated 276.8 MOS/KG (273-304); Potassium 3.9 MMOL/L (3.5-5.1); Total Protein 6.6 G/DL (6.4-8.3)
[2017-07-03 19:32] LABS: PT Patient Result 10.4 SECS
[2017-07-03] MEDS ORDERED: NITROGLYCERIN 2% OINT 1 INCH/GM PACK TOP ONE (19:37)
[2017-07-03] MEDS ORDERED: ONDANSETRON 4 MG/2 ML VIAL ONE (19:38)
[2017-07-03] MEDS ORDERED: ALUM/MAG/SIMETH/LIDO VISC 1:1 30 ML BOTTLE PO ONE (19:38)
[2017-07-03] MEDS ORDERED: ASPIRIN 325 MG TABLET ONE (19:38)
[2017-07-03] MEDS ORDERED: MORPHINE 2 MG/1 ML SYRINGE ONE (19:38)
[2017-07-03] MEDS ORDERED: methylPREDNISolone SOD SUC 125 MG/2 ML VIAL ONE (19:38)
--- NOTE | 2017-07-03 20:19 | XRay Report ---
2 view chest 07/03/2017 7: 49 PM Indication: Chest pain Comparison: April 01, 2017 Findings: Cardiomediastinal contours are stable. Interval dual-lumen central venous catheter has been placed in satisfactory position from right subclavian approach. Lungs are clear bilaterally. . No acute osseous abnormalities. Visualized upper abdomen demonstrates no acute pathology. Impression: No acute cardiopulmonary findings PROCEDURE INTERPRETED AT [facility] DEPARTMENT OF RADIOLOGY Final Report Signed by: Clarence Montenegro MD
[2017-07-03] MEDS ORDERED: hydrALAZINE 20 MG/1 ML VIAL IV STA (20:38)
[2017-07-03] MEDS ORDERED: ONDANSETRON 4 MG/2 ML VIAL IV PRN (20:47)
[2017-07-03] MEDS ORDERED: oxyCODONE IR 5 MG TABLET PO PRN (20:51)
[2017-07-03] MEDS ORDERED: LORATADINE 10 MG TABLET PO PRN (20:51)
[2017-07-03] MEDS ORDERED: NON-FORMULARY MEDICATION (Melatonin [Melatonin] 10 MG) PO SCH (21:00)
[2017-07-03] MEDS ORDERED: ZALEPLON 5 MG CAPSULE PO SCH (21:00)
[2017-07-03] MEDS ORDERED: ARIPiprazole 5 MG TABLET PO SCH (21:00)
[2017-07-03] MEDS ORDERED: NON-FORMULARY MEDICATION (Vortioxetine Hydrobromide [Trintellix] 10 MG) PO SCH (21:00)
[2017-07-03] MEDS ORDERED: NON-FORMULARY MEDICATION (Doxepin Hcl [Silenor] 3 MG) PO SCH (21:00)
[2017-07-03] MEDS ORDERED: SEVELAMER CARBONATE 800 MG TABLET PO SCH (21:00)
--- NOTE | 2017-07-03 21:18 | Hospitalist History & Physical ---
Assessment and Plan (1) Chest pain Status: Acute Current Visit: Yes (2) Chronic renal failure Status: Acute Current Visit: Yes (3) ESRD (end stage renal disease) on dialysis Status: Acute Current Visit: Yes (4) ESRD (end-stage renal disease) due to SLE Status: Acute Current Visit: Yes (5) HTN (hypertension) Status: Acute Assessment and plan: Our plan for this patient will be admitting her to our service. Patient be placed on monitored bed. Her symptoms sound very atypical but her risk factors are significant giving that she has lupus and end-stage renal disease. Her mom developed cardiac issues in her 50s patient is in her 40s. I feel that it would be appropriate to admit her and have cardiology see her. We will also consult nephrology to schedule her dialysis which occurs Sunday. Plan was discussed with patient and she are in agreement. Patient will be reevaluated in the morning Current Visit: No History of Present Illness Chief complaint: Chest pain History of present illness: Ms. Jin is a 47 year old female with past medical history of end-stage renal disease, lupus, hypertension and fibromyalgia who is her normal state of health of the past 6 days. Patient reports that time she developed chest pain. She says that it gets her short of breath when she lays down. She denies diaphoresis. She says the pain is constant and consistent with no exertional component. She has had costochondritis in the past before but this is different she says it has has never felt like this before. She initially thought she had pulled a muscle did not really want to think about cardiac. Her mother started developing cardiac problems in her 50s I was consulted to admit the patient to the emergency room Home Medications Medication Instructions Recorded Confirmed Type Metoprolol Tartrate 25 mg PO BID 02/12/15 07/03/17 History Omeprazole 40 mg PO QAM 02/12/15 07/03/17 History Biotin 10,000 mcg PO QAM 03/30/16 07/03/17 History fentaNYL [Fentanyl 25 mcg/hr Patch] 1 patch TRANSDERM Q3DAY 04/13/16 07/03/17 History ARIPiprazole [Aripiprazole] 5 mg PO BEDTIME 04/01/17 07/03/17 History Calcitriol 0.25 mcg PO TID 04/01/17 07/03/17 History Ferrous Fumarate [Ferrimin 150] 456 mg PO QAM 04/01/17 07/03/17 History Loratadine Tab [Claritin Tab] 10 mg PO QAM PRN 04/01/17 07/03/17 History Melatonin 10 mg PO BEDTIME 04/01/17 07/03/17 History Oxycodone HCl 10 mg PO TID PRN 04/01/17 07/03/17 History Prorenal D Tablet 1 tablet PO QAM 04/01/17 07/03/17 History Sevelamer Carbonate Tab [Renvela 2,400 mg PO TID W/MEALS 04/01/17 07/03/17 History Tab] Sevelamer Carbonate Tab [Renvela 800 mg PO WITH SNACKS 04/01/17 07/03/17 History Tab] Vortioxetine Hydrobromide 10 mg PO BEDTIME 04/01/17 07/03/17 History [Trintellix] Zolpidem Tartrate [Zolpidem 12.5 mg PO BEDTIME 04/01/17 07/03/17 History Tartrate ER] Doxepin HCl [Silenor] 3 mg PO BEDTIME 07/03/17 07/03/17 History NIFEdipine [Nifedipine ER] 30 mg PO QAM 07/03/17 07/03/17 History predniSONE TAB [PredniSONE] 5 mg PO QAM 07/03/17 07/03/17 History Allergies Allergy/AdvReac Type Severity Reaction Status Date / Time Sulfa (Sulfonamide Allergy Mild ITCHING Verified 04/13/16 06:08 Antibiotics) dapsone AdvReac Severe PT STATES Verified 04/13/16 06:08 SHE HAD TO HAVE BLOOD TRANSFUSION AFTER TAKING Medical,Surgical,& Family Hx - Medical History Cardio: History of: Hypertension Psychological: History of: Depression Neurology: History of: Peripheral Neuropathy No history of: Seizures HEENT: History of: Ear Problem (HEARING DIFFICULTY), Eye Problem (GLASSES) Rheumatology: History of;: Systemic Lupus Erythematosus Respiratory: History of: Pulmonary Hypertension (2013) Renal: History of: Dialysis (peritoneal), Renal Failure, Renal Problems (KIDNEY DISEASE;) Gastrointestinal: History of: GERD Musculoskeletal: History of: Osteoporosis Hematology: History of: Anemia, Clotting Problems (BLOOD CLOTS IN LUNG) Reproductive: History of: Reproductive Problems (1 MISSCARIAGE) Other: History of: Anesthesia Reactions (PT STATES SHE COULD NOT FEEL LEGS FOR 3 DAYS AFTER PAST ANESTHESIA) - Surgical History Abdominal Surgeries: Surgical HX of: Abdominal Surgery, Cholecystectomy Reproductive Surgeries: Surgical HX of;: Section (3 C SECTIONS), Dilation and Curettage, Genitourinary Surgery (KIDNEY BIOPSY), Gynecologic Surgery Orthopedic Surgeries: Surgical HX of;: Total Hip Replacement (LEFT HIP REVISION 2006, Right hip revision 2016) - Family History Family History: Reports;: Family Cancer (DAD), Family Heart Disease (MOM CHF), Family Hypertension (MOM AND DAD) - Social History Smoking Status: Never smoker Frequency of Alcohol Use: None Type of Drug Use: None 12 point system: reviewed and no additional remarkable complaints except as stated Exam - Constitutional Vitals: Period Temp Pulse Resp BP Sys/Murdock Pulse Ox Last 24 Hr 97.7 F-97.7 F 72-85 18-22 147-164/101-109 100 - General General appearance: alert, in no apparent distress - Head Head exam: Present: atraumatic, normocephalic - Eye Eye exam: Present: normal appearance, PERRL, EOMI - ENT ENT exam: Present: normal oropharynx, mucous membranes moist, TM's normal bilaterally, normal external ear exam - Neck Neck exam: Present: full ROM, trachea midline. Absent: tenderness - Chest Chest inspection: Present: symmetric chest wall rise, tenderness to palpation - Respiratory Respiratory exam: Present: normal lung sounds bilaterally. Absent: respiratory distress - Cardiovascular Cardiovascular exam: Present: regular rate, normal rhythm, normal heart sounds. - Abdominal Exam Abdominal exam: Present: soft, normal bowel sounds. - Extremities Exam Extremities exam: Present: full ROM. Absent: tenderness - Back Exam Back exam: Present: full ROM. Absent: tenderness - Neurological Exam Neurological exam: Present: alert, oriented X3, CN II-XII intact. - Psychiatric Psychiatric exam: Present: normal affect, normal mood - Skin Skin exam: Present: warm, dry, intact, normal color Results - Labs CBC & BMP: 07/03/17 18:34 07/03/17 18:34
[2017-07-03] MEDS ORDERED: ENOXAPARIN 30 MG/0.3 ML SYRINGE SUBCUT SCH (22:00)
[2017-07-03] MEDS ORDERED: hydrALAZINE 20 MG/1 ML VIAL ONE (22:35)
[2017-07-03 23:00] LABS: Risk Ratio 2.22; VLDL CHOLESTEROL 30.6 MG/DL
[2017-07-03] MEDS: CALCITRIOL 0.25 MCG CAPSULE PO SCH (23:11)
[2017-07-03] MEDS: METOPROLOL TARTRATE 25 MG TABLET PO SCH (23:11)
--- NOTE | 2017-07-03 23:21 | Order Completion Report ---
See report scanned to EMR
[2017-07-04] MEDS: NITROGLYCERIN 2% OINT 1 INCH/GM PACK TOP SCH ×2 (00:07→07:13)
[2017-07-04] MEDS ORDERED: guaiFENesin 200 MG/10 ML UDCUP PO PRN (00:08)
--- NOTE | 2017-07-04 02:07 | Order Completion Report ---
See report scanned to EMR
[2017-07-04 07:48] VITALS: BP 137/73
[2017-07-04] MEDS ORDERED: SEVELAMER CARBONATE 800 MG TABLET PO SCH (08:00)
[2017-07-04] MEDS ORDERED: PANTOPRAZOLE 40 MG TABLET PO SCH (09:00)
[2017-07-04] MEDS ORDERED: predniSONE 5 MG TABLET PO SCH (09:00)
[2017-07-04] MEDS ORDERED: NON-FORMULARY MEDICATION (Biotin [Biotin] 10,000 MCG) PO SCH (09:00)
[2017-07-04] MEDS ORDERED: FERROUS FUMARATE PO SCH (09:00)
[2017-07-04] MEDS ORDERED: MULTIVITAMIN (BEROCCA) TABLET PO SCH (09:00)
[2017-07-04] MEDS ORDERED: ASPIRIN EC 325 MG TABLET PO SCH (09:00)
--- NOTE | 2017-07-04 09:13 | Cardiology Consult Note ---
Assessment and Plan - Time spent with patient Time spent with patient: Greater than 30 minutes (1) Chest pain Status: Acute Assessment and plan: Her chest pain is been persistent now for 6-8 days and without really an increase in troponins. The pain is resolved after she received medication in the emergency room including morphine as well as a IV bolus of steroids and better blood pressure control. Her chest pain does not appear to be ischemic in nature. This time we await her echocardiogram. If this does not reveal any specific pathology I would not carry out further evaluation at this time. Current Visit: Yes (2) Abnormal ECG Status: Chronic Assessment and plan: The patient is ECG is chronically abnormal based on prior ECG in comparison. The patient has no acute changes when compared to prior ECG. Current Visit: Yes (3) ESRD (end stage renal disease) on dialysis Status: Chronic Assessment and plan: Previously on peritoneal dialysis until she developed peritonitis. She is now on hemodialysis using a right-sided IJ/subclavian catheter. Current Visit: Yes (4) Hypertensive urgency Status: Acute Assessment and plan: Patient blood pressures or better at this time. Current Visit: Yes (5) Lupus Status: Chronic Assessment and plan: This certainly may have an effect on multiple medical issues. Current Visit: Yes (6) HTN (hypertension) Status: Chronic Assessment and plan: Chronic issue for which her medication may be titrated. Current Visit: No History of Present Illness - Data of Consult Patient: new to practice Consult date: 07/04/17 - Consult Narrative Reason for consult: Chest pain History of present illness: Ms. Jin is a 47 year old female who is admitted to the emergency room. She presented with a 6-8 day history of diffuse chest pain across her chest. This is persistent and unrelenting. It is exacerbated by deep breath and lying back. She is not very active some physical activity is unknown whether this had any would have any effect. Patient presented to the emergency room where her ECG revealed T-wave abnormalities diffusely at this is similar to prior old ECG that we have. The patient had no other acute changes. The patient received morphine in the emergency room as well as some other medications including IV Apresoline and steroids. With this the patient had resolution of her chest pain has had none since then. Her troponin is 0.019 and 0.0182. This is flat. Her BNP is elevated at 639. She has had no prior cardiac history and has never seen a chief operator hydroformer previously. With all the symptoms she has had no shortness of breath nausea diaphoresis and no radiation of the pain. She does have end-stage renal disease and is been on peritoneal dialysis until she has had peritonitis recently and now has a right IJ/subclavian venous access catheter for hemodialysis. At the time of our visit the patient is not having any chest pain is clinically stable. Her echocardiogram on a quick look reveals left ventricular ejection fraction at least 50+%. There may be some left ventricle hypertrophy. There is some sclerosing the aortic mitral valve. There may be some minimal mitral valve regurgitation and mild or insufficiency. We will review these studies once it is available and make a complete report. At this point unless other issues are uncovered I do not think further cardiac evaluation will be necessary. 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 CC: Taz Burdick MD - Home Medications and Allergies Home Medications: Home Medications Medication Instructions Recorded Confirmed Type Metoprolol Tartrate 25 mg PO BID 02/12/15 07/03/17 History Omeprazole 40 mg PO QAM 02/12/15 07/03/17 History Biotin 10,000 mcg PO QAM 03/30/16 07/03/17 History fentaNYL [Fentanyl 25 mcg/hr Patch] 1 patch TRANSDERM Q3DAY 04/13/16 07/03/17 History ARIPiprazole [Aripiprazole] 5 mg PO BEDTIME 04/01/17 07/03/17 History Calcitriol 0.25 mcg PO TID 04/01/17 07/03/17 History Ferrous Fumarate [Ferrimin 150] 456 mg PO QAM 04/01/17 07/03/17 History Loratadine Tab [Claritin Tab] 10 mg PO QAM PRN 04/01/17 07/03/17 History Melatonin 10 mg PO BEDTIME 04/01/17 07/03/17 History Oxycodone HCl 10 mg PO TID PRN 04/01/17 07/03/17 History Prorenal D Tablet 1 tablet PO QAM 04/01/17 07/03/17 History Sevelamer Carbonate Tab [Renvela 2,400 mg PO TID W/MEALS 04/01/17 07/03/17 History Tab] Sevelamer Carbonate Tab [Renvela 800 mg PO WITH SNACKS 04/01/17 07/03/17 History Tab] Vortioxetine Hydrobromide 10 mg PO BEDTIME 04/01/17 07/03/17 History [Trintellix] Zolpidem Tartrate [Zolpidem 12.5 mg PO BEDTIME 04/01/17 07/03/17 History Tartrate ER] Doxepin HCl [Silenor] 3 mg PO BEDTIME 07/03/17 07/03/17 History NIFEdipine [Nifedipine ER] 30 mg PO QAM 07/03/17 07/03/17 History predniSONE TAB [PredniSONE] 5 mg PO QAM 07/03/17 07/03/17 History Lactobacillus Rhamnosus GG 1 capsule PO DAILY 07/04/17 07/04/17 History [Culturelle] Potassium Chloride 10 meq PO DAILY 07/04/17 07/04/17 History Allergies/Adverse Reactions: Allergies Allergy/AdvReac Type Severity Reaction Status Date / Time Sulfa (Sulfonamide Allergy Mild ITCHING Verified 04/13/16 06:08 Antibiotics) dapsone AdvReac Severe PT STATES Verified 04/13/16 06:08 SHE HAD TO HAVE BLOOD TRANSFUSION AFTER TAKING Review of systems: Constitutional: Denies anorexia, chills, fatigue, fever, frequent falls, night sweats, weight gain; some weight loss related to recent hospitalization with peritonitis. Eyes: Denies visual changes or loss of vision Ears: Denies decreased hearing, vertigo Nose, mouth and throat: Denies dysphagia, epistaxis, headaches, neck pain, tongue swelling, Neck: Denies thyromegaly or masses. No stiffness. Cardiovascular: as per HPI Respiratory: Denies cough, dyspnea, hemoptysis, dyspnea on exertion, wheezing, snoring Gastrointestinal: Denies abdominal pain, constipation, dyspepsia, dysphagia, hematemesis, hematochezia, melena, nausea, vomiting Genitourinary: End-stage renal disease on dialysis. Musculoskeletal: Denies arthralgias, joint swelling, muscle weakness, myalgias. 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 This may be related to steroid use. Neurological: denies abnormal gait, abnormal speech, confusion, convulsions, frequent falls, headaches, memory loss, syncope Psychiatric: Denies anxiety, confusion, depression Endocrine: Denies cold intolerance, fatigue, heat intolerance Hematologic/Lymphatic: Denies easy bleeding, easy bruising Dermatologic: Denies Rash, itching, shingles Medical,Surgical,& Family Hx - Medical History Cardio: History of: Hypertension No history of: Aneurysm, Cardiac Dysrhythmia, Cerebrovascular Disease, Congenital Heart Disease, CHF, Pacemaker, PVD, Valvular Heart Disease, Cardiovascular Problems Psychological: History of: Depression No history of: Anxiety Disorders, ADHD, Behavior Problems, Bipolar Disorder, Previous Suicide Attempt, Psychiatric/Substance Abuse Tx, Schizophrenia, Violent Behavior, Psychiatric Problems Neurology: History of: Peripheral Neuropathy No history of: Brain Aneurysm, Cerebral Hemorrhage, Cerebrovascular Accident , Cerebral Palsy, Dementia, Migraine, Multiple Sclerosis, Parkinson's Disease, Seizures, TIA, Vertigo, Neurologocal Cancer HEENT: History of: Ear Problem (HEARING DIFFICULTY), Eye Problem (GLASSES) Endocrine: No history of: Adrenal Disease, Diabetes Mellitus (IDDM), Diabetes Mellitus ( NIDDM), Dyslipidemia, Thyroid Disorder, Endocrine Cancer, Endocrine Problems Rheumatology: History of;: Systemic Lupus Erythematosus No history of;: Psoriasis, Sjogrens Respiratory: History of: Pulmonary Hypertension (2013) No history of: Asthma, Bronchitis, COPD, Intubation, Obstructive Sleep Apnea , Pulmonary Embolism, Pneumonia, Lung Cancer Renal: History of: Dialysis (hemodialysis), Renal Failure, Renal Problems ( KIDNEY DISEASE;) No history of: Renal (Kidney) Cancer Genitourinary: No history of: Bladder Problem, Kidney Stones, Recurring Urinary Tract Infections, Genitourinary Cancer, Problems Gastrointestinal: History of: GERD No history of: Bowel Obstruction, Clostridium Difficile, Crohn's Disease, Diverticulitis/ Diverticulosis, Esophageal Varices, Gastrointestinal Bleed, Hemorrhoids, Hematochezia, Hepatitis, Liver Problems, Pancreatitis, Polyps, Ulcerative Colitis, Gastrointestinal Cancer, GI Problems Musculoskeletal: History of: Osteoporosis No history of: Amputation Hematology: History of: Anemia, Clotting Problems (BLOOD CLOTS IN LUNG) Reproductive: History of: Reproductive Problems (1 MISSCARIAGE) Other: History of: Anesthesia Reactions (PT STATES SHE COULD NOT FEEL LEGS FOR 3 DAYS AFTER PAST ANESTHESIA) No history of: Cancer, Eczema, HIV, Malignant Hyperthermia, Vancomycin- Resistant Enterococci, Skin Problems - Surgical History Cardiac Surgeries: Patient Denies: Femoral-Popliteal Bypass Graft, Cardiac Catheterization, Cardiac Surgery, Carotid Endarterectomy, Internal Defibrillator, Vascular Access Devices Thoracic Surgeries: Patient denies;: Lithotripsy, Nephrectomy Neurologic Surgeries: Patient denies: Brain Aneurysm, Cerebral Hemorrhage HEENT Surgeries: Patient denies: Carotid Endarterectomy, Thyroid Surgery Abdominal Surgeries: Surgical HX of: Abdominal Surgery, Cholecystectomy Patient denies: Appendectomy, Colonoscopy, Gastric Bypass Surgery, EGD, Hernia Repair, Splenectomy Reproductive Surgeries: Surgical HX of;: Section (3 C SECTIONS), Dilation and Curettage, Genitourinary Surgery (KIDNEY BIOPSY), Gynecologic Surgery Patient denies;: Cystoscopy Orthopedic Surgeries: Surgical HX of;: Total Hip Replacement (LEFT HIP REVISION 2005, Right hip revision 2015) - Family History Family History: Reports;: Family Cancer (DAD), Family Heart Disease (MOM CHF), Family Hypertension (MOM AND DAD) - Social History Smoking Status: Never smoker Frequency of Alcohol Use: None Type of Drug Use: None Marital Status: Lives With:: Spouse Functional capacity: independent ambulation Physical Examination Vital Signs Temp Pulse Resp BP Pulse Ox 97.7 F 85 18 147/101 100 07/03/17 17:39 07/03/17 17:39 07/03/17 17:39 07/03/17 17:39 07/03/17 17:39 Exam: General appearance: normal weight, no acute distress, lying flat in bed. Head exam: normal inspection, atraumatic Eye exam: Pupils are equal and reactive. EOMI. There is no trauma. Ear exam: Anatomically normal. Normal auditory acuity to conversation. Oral exam: No significant oral lesions. Neck exam: normal inspection no JVD. No carotid bruit. Trachea is in midline. Respiratory exam: clear to auscultation bilaterally posteriorly and anteriorly with good air movement. No rales, rhonchi or wheezes. Cardiovascular exam: regular rate and rhythm, no murmur or gallop or rub. No precordial lift. No bruits over the major arteries. Chest wall/torso: Anatomically normal. No tenderness, deformity. She has a dialysis catheter right upper chest. Peripheral Pulses: 2+ throughout. GI/Abdominal exam: normal bowel sounds, soft and nontender, no abdominal bruits or pulsatile masses. Musculoskeletal/Extremities exam: normal inspection without edema or cyanosis. No deformities or trauma. Neurological exam: alert, oriented X3. There is no gross neurologic deficits. Psychiatric exam: normal affect, normal mood. Cognitive function is grossly intact. Skin exam: normal color, warm. No rashes or other skin lesions. Result/EKG - Labs CBC & BMP: 07/03/17 18:34 07/03/17 18:34 Lab Results: I have reviewed the past 24 hour labs Labs: Laboratory Results - last 24 hr 07/03/17 07/03/17 07/03/17 18:34 18:34 18:34 WBC RBC Hgb Hct MCV MCH MCHC RDW Plt Count MPV Neut % (Auto) Lymph % (Auto) [place] % (Auto) Eos % (Auto) Baso % (Auto) Neut # (Auto) Lymph # (Auto) [place] # (Auto) Eos # (Auto) Baso # (Auto) Immature Gran % Nucleated RBC % Immature Gran # Nucleated RBCs # Immature Plt Fraction INR 1.0 PT Patient/Control Mix 10.4 D-Dimer, Quantitative 2.0 Sodium 137 Potassium 3.9 Chloride 100 Carbon Dioxide 26 Anion Gap 14.9 BUN 23 H Creatinine 5.60 H GFR Calculation 10 BUN/Creatinine Ratio 4.00 L Glucose 92 Calculated Osmolality 276.8 Calcium 10.5 H Magnesium 2.0 Total Bilirubin 0.50 AST 8 ALT 12 L Alkaline Phosphatase 171 H Troponin I B-Natriuretic Peptide 639 H Total Protein 6.6 Albumin 2.8 L Globulin 3.8 H Albumin/Globulin Ratio 0.7 L Triglycerides Cholesterol LDL Cholesterol VLDL Cholesterol HDL Cholesterol Heart Disease Risk Ratio Lipase 210.0 07/03/17 07/03/17 07/03/17 18:34 18:34 22:02 WBC 10.8 RBC 4.34 Hgb 11.2 L Hct 38.5 MCV 88.7 MCH 26 L MCHC 29.1 L RDW 19.3 H Plt Count 239 MPV 11.2 Neut % (Auto) 73.9 Lymph % (Auto) 17.2 L [place] % (Auto) 4.4 Eos % (Auto) 2.8 Baso % (Auto) 0.4 Neut # (Auto) 8.0 H Lymph # (Auto) 1.9 [place] # (Auto) 0.5 Eos # (Auto) 0.3 Baso # (Auto) 0.0 Immature Gran % 1.3 Nucleated RBC % 0.2 Immature Gran # 0.14 Nucleated RBCs # 0.02 Immature Plt Fraction 0.0 INR PT Patient/Control Mix D-Dimer, Quantitative Sodium Potassium Chloride Carbon Dioxide Anion Gap BUN Creatinine GFR Calculation BUN/Creatinine Ratio Glucose Calculated Osmolality Calcium Magnesium Total Bilirubin AST ALT Alkaline Phosphatase Troponin I 0.019 0.018 B-Natriuretic Peptide Total Protein Albumin Globulin Albumin/Globulin Ratio Triglycerides Cholesterol LDL Cholesterol VLDL Cholesterol HDL Cholesterol Heart Disease Risk Ratio Lipase 07/03/17 07/04/17 22:02 01:20 WBC RBC Hgb Hct MCV MCH MCHC RDW Plt Count MPV Neut % (Auto) Lymph % (Auto) [place] % (Auto) Eos % (Auto) Baso % (Auto) Neut # (Auto) Lymph # (Auto) [place] # (Auto) Eos # (Auto) Baso # (Auto) Immature Gran % Nucleated RBC % Immature Gran # Nucleated RBCs # Immature Plt Fraction INR PT Patient/Control Mix D-Dimer, Quantitative Sodium Potassium Chloride Carbon Dioxide Anion Gap BUN Creatinine GFR Calculation BUN/Creatinine Ratio Glucose Calculated Osmolality Calcium Magnesium Total Bilirubin AST ALT Alkaline Phosphatase Troponin I 0.018 B-Natriuretic Peptide Total Protein Albumin Globulin Albumin/Globulin Ratio Triglycerides 153 H Cholesterol 111 LDL Cholesterol 40.0 VLDL Cholesterol 30.6 HDL Cholesterol 50 Heart Disease Risk Ratio 2.22 Lipase - Impressions Impressions: ECG with sinus rhythm with diffuse T-wave inversion inferior laterally as well as anteriorly. In comparison to ECG of February 2015 these ECG/T-wave changes were for the most part present.
[2017-07-04] MEDS: METOPROLOL TARTRATE 25 MG TABLET PO SCH (09:34)
[2017-07-04] MEDS: CALCITRIOL 0.25 MCG CAPSULE PO SCH (09:35)
[2017-07-04] MEDS ORDERED: HEPARIN 10,000 UNIT/10 ML VIAL IV PRN (11:19)
--- NOTE | 2017-07-04 12:17 | Dialysis Note ---
Dialysis Note - Dialysis Note Ms. Jin is seen during her hemodialysis. She is tolerating it well. She is having no chest pain and is looking forward to going home today.
--- NOTE | 2017-07-04 12:20 | Discharge Summary ---
Hospital Course - Hospital Course Hospital Course: Ms. Jin is a 47-year-old female that was admitted overnight from the emergency department with chest pain. She was seen in consultation by cardiology. They felt that this was musculoskeletal in nature and needed no further cardiac workup. The patient has end-stage renal disease on dialysis and multiple other comorbid conditions including lupus and hypertension. Her chest pain has resolved. Her cardiac enzymes were unremarkable. She is ready for discharge home. Home medications reviewed and reconciled. No changes made. She will follow-up with her substance abuse services director Dr. Diehl as an outpatient. - Time spent with patient Time with patient DS: Less than 30 minutes Diagnosis - Discharge Diagnosis (1) HTN (hypertension) Status: Chronic (2) Lupus Status: Chronic (3) ESRD (end-stage renal disease) due to SLE Status: Acute (4) ESRD (end stage renal disease) on dialysis Status: Chronic Discharge Plan - Discharge Data Disposition: Disch To Home/Self Care Condition at Discharge: Stable Discharge Diet: advance to your usual diet Activity: resume usual activities as tolerated Hygiene: no restrictions Weight Bearing at Discharge: full weight bearing Driving: no restrictions Contact your physician if you experience:: fever over 101, Nausea/Vomiting, Shortness of breath, pain uncontrolled by pain medications - Discharge Medications Continue Omeprazole 40 mg PO QAM Metoprolol Tartrate 25 mg PO BID Biotin 10,000 mcg PO QAM fentaNYL [Fentanyl 25 mcg/hr Patch] 1 patch TRANSDERM Q3DAY ARIPiprazole [Aripiprazole] 5 mg PO BEDTIME Calcitriol 0.25 mcg PO TID Ferrous Fumarate [Ferrimin 150] 456 mg PO QAM Loratadine Tab [Claritin Tab] 10 mg PO QAM PRN PRN Reason: Allergy Symptoms Melatonin 10 mg PO BEDTIME Prorenal D Tablet 1 tablet PO QAM Sevelamer Carbonate Tab [Renvela Tab] 800 mg PO WITH SNACKS Sevelamer Carbonate Tab [Renvela Tab] 2,400 mg PO TID W/MEALS Zolpidem Tartrate [Zolpidem Tartrate ER] 12.5 mg PO BEDTIME predniSONE TAB [PredniSONE] 5 mg PO QAM NIFEdipine [Nifedipine ER] 30 mg PO QAM Doxepin HCl [Silenor] 3 mg PO BEDTIME Potassium Chloride 10 meq PO DAILY Oxycodone HCl 10 mg PO TID PRN PRN Reason: Pain Vortioxetine Hydrobromide [Trintellix] 10 mg PO BEDTIME Lactobacillus Rhamnosus GG [Culturelle] 1 capsule PO DAILY - Follow Up or Referral - Forms/Instructions Instructions: Noncardiac Chest Pain (DC) Exam - Constitutional Vitals: Period Temp Pulse Resp BP Sys/Murdock Pulse Ox Last 24 Hr 96.9 F-97.8 F 62-85 17-22 133-164/73-109 98-100 Discharge Results Labs on day of discharge: Labs from last 24 hours 07/04/17 07/03/17 07/03/17 01:20 22:02 22:02 WBC RBC Hgb Hct MCV MCH MCHC RDW Plt Count MPV Neut % (Auto) Lymph % (Auto) [place] % (Auto) Eos % (Auto) Baso % (Auto) Neut # (Auto) Lymph # (Auto) [place] # (Auto) Eos # (Auto) Baso # (Auto) Immature Gran % Nucleated RBC % Immature Gran # Nucleated RBCs # Immature Plt Fraction INR PT Patient/Control Mix D-Dimer, Quantitative Sodium Potassium Chloride Carbon Dioxide Anion Gap BUN Creatinine GFR Calculation BUN/Creatinine Ratio Glucose Calculated Osmolality Calcium Magnesium Total Bilirubin AST ALT Alkaline Phosphatase Troponin I 0.018 0.018 B-Natriuretic Peptide Total Protein Albumin Globulin Albumin/Globulin Ratio Triglycerides 153 H Cholesterol 111 LDL Cholesterol 40.0 VLDL Cholesterol 30.6 HDL Cholesterol 50 Heart Disease Risk Ratio 2.22 Lipase 07/03/17 07/03/17 07/03/17 18:34 18:34 18:34 WBC 10.8 RBC 4.34 Hgb 11.2 L Hct 38.5 MCV 88.7 MCH 26 L MCHC 29.1 L RDW 19.3 H Plt Count 239 MPV 11.2 Neut % (Auto) 73.9 Lymph % (Auto) 17.2 L [place] % (Auto) 4.4 Eos % (Auto) 2.8 Baso % (Auto) 0.4 Neut # (Auto) 8.0 H Lymph # (Auto) 1.9 [place] # (Auto) 0.5 Eos # (Auto) 0.3 Baso # (Auto) 0.0 Immature Gran % 1.3 Nucleated RBC % 0.2 Immature Gran # 0.14 Nucleated RBCs # 0.02 Immature Plt Fraction 0.0 INR PT Patient/Control Mix D-Dimer, Quantitative Sodium Potassium Chloride Carbon Dioxide Anion Gap BUN Creatinine GFR Calculation BUN/Creatinine Ratio Glucose Calculated Osmolality Calcium Magnesium Total Bilirubin AST ALT Alkaline Phosphatase Troponin I 0.019 B-Natriuretic Peptide 639 H Total Protein Albumin Globulin Albumin/Globulin Ratio Triglycerides Cholesterol LDL Cholesterol VLDL Cholesterol HDL Cholesterol Heart Disease Risk Ratio Lipase 07/03/17 07/03/17 18:34 18:34 WBC RBC Hgb Hct MCV MCH MCHC RDW Plt Count MPV Neut % (Auto) Lymph % (Auto) [place] % (Auto) Eos % (Auto) Baso % (Auto) Neut # (Auto) Lymph # (Auto) [place] # (Auto) Eos # (Auto) Baso # (Auto) Immature Gran % Nucleated RBC % Immature Gran # Nucleated RBCs # Immature Plt Fraction INR 1.0 PT Patient/Control Mix 10.4 D-Dimer, Quantitative 2.0 Sodium 137 Potassium 3.9 Chloride 100 Carbon Dioxide 26 Anion Gap 14.9 BUN 23 H Creatinine 5.60 H GFR Calculation 10 BUN/Creatinine Ratio 4.00 L Glucose 92 Calculated Osmolality 276.8 Calcium 10.5 H Magnesium 2.0 Total Bilirubin 0.50 AST 8 ALT 12 L Alkaline Phosphatase 171 H Troponin I B-Natriuretic Peptide Total Protein 6.6 Albumin 2.8 L Globulin 3.8 H Albumin/Globulin Ratio 0.7 L Triglycerides Cholesterol LDL Cholesterol VLDL Cholesterol HDL Cholesterol Heart Disease Risk Ratio Lipase 210.0 DS: Provider Date of admission: 07/03/17 21:36 Primary care physician: . No PCP Attending physician on admission: Farhad Arias MD Consults: 07/03/17 20:51 Consult to Physician [CONS] Routine Comment: Consulting Provider: Cardiology - [facility] Consult to Specialist Group: Cardiology When should Consulting Provider be notified: In am Person Notified: Talya Date Notified: 07/04/17 Time Notified: 07:50 07/03/17 21:59 Consult to Physician [CONS] Routine Comment: dialysis patient Consulting Provider: Andrea Diehl Jr. Consult to Specialist Group: Nephrology When should Consulting Provider be notified: In am Person Notified: Jazmyn Date Notified: 07/04/17 Time Notified: 07:45 Discharging clinician: Taz Burdick MD Expected date of discharge: 07/04/17
--- NOTE | 2017-07-04 14:55 | Nephrology Consult Note ---
History of Present Illness Chief complaint: End-stage renal disease History of present illness: Ms. Jin is a 47 year old female with history of end-stage renal disease due to lupus currently is on hemodialysis at the [facility] dialysis unit. Patient presented with a history of chest pain that has progressed over the past several days. Pain was associated with some shortness of breath. She had initial serial cardiac enzymes which have been unremarkable. She is without chest pain at this time. No fevers or chills. There is been no change in medications. Nephrology has been consulted for renal issues. Home Medications Medication Instructions Recorded Confirmed Type Metoprolol Tartrate 25 mg PO BID 02/12/15 07/03/17 History Omeprazole 40 mg PO QAM 02/12/15 07/03/17 History Biotin 10,000 mcg PO QAM 03/30/16 07/03/17 History fentaNYL [Fentanyl 25 mcg/hr Patch] 1 patch TRANSDERM Q3DAY 04/13/16 07/03/17 History ARIPiprazole [Aripiprazole] 5 mg PO BEDTIME 04/01/17 07/03/17 History Calcitriol 0.25 mcg PO TID 04/01/17 07/03/17 History Ferrous Fumarate [Ferrimin 150] 456 mg PO QAM 04/01/17 07/03/17 History Loratadine Tab [Claritin Tab] 10 mg PO QAM PRN 04/01/17 07/03/17 History Melatonin 10 mg PO BEDTIME 04/01/17 07/03/17 History Oxycodone HCl 10 mg PO TID PRN 04/01/17 07/03/17 History Prorenal D Tablet 1 tablet PO QAM 04/01/17 07/03/17 History Sevelamer Carbonate Tab [Renvela 2,400 mg PO TID W/MEALS 04/01/17 07/03/17 History Tab] Sevelamer Carbonate Tab [Renvela 800 mg PO WITH SNACKS 04/01/17 07/03/17 History Tab] Vortioxetine Hydrobromide 10 mg PO BEDTIME 04/01/17 07/03/17 History [Trintellix] Zolpidem Tartrate [Zolpidem 12.5 mg PO BEDTIME 04/01/17 07/03/17 History Tartrate ER] Doxepin HCl [Silenor] 3 mg PO BEDTIME 07/03/17 07/03/17 History NIFEdipine [Nifedipine ER] 30 mg PO QAM 07/03/17 07/03/17 History predniSONE TAB [PredniSONE] 5 mg PO QAM 07/03/17 07/03/17 History Lactobacillus Rhamnosus GG 1 capsule PO DAILY 07/04/17 07/04/17 History [Culturelle] Potassium Chloride 10 meq PO DAILY 07/04/17 07/04/17 History Allergies Allergy/AdvReac Type Severity Reaction Status Date / Time Sulfa (Sulfonamide Allergy Mild ITCHING Verified 04/13/16 06:08 Antibiotics) dapsone AdvReac Severe PT STATES Verified 04/13/16 06:08 SHE HAD TO HAVE BLOOD TRANSFUSION AFTER TAKING Medical,Surgical,& Family Hx - Medical History Cardio: History of: Hypertension No history of: Aneurysm, Cardiac Dysrhythmia, Cerebrovascular Disease, Congenital Heart Disease, CHF, Pacemaker, PVD, Valvular Heart Disease, Cardiovascular Problems Psychological: History of: Depression No history of: Anxiety Disorders, ADHD, Behavior Problems, Bipolar Disorder, Previous Suicide Attempt, Psychiatric/Substance Abuse Tx, Schizophrenia, Violent Behavior, Psychiatric Problems Neurology: History of: Peripheral Neuropathy No history of: Brain Aneurysm, Cerebral Hemorrhage, Cerebrovascular Accident , Cerebral Palsy, Dementia, Migraine, Multiple Sclerosis, Parkinson's Disease, Seizures, TIA, Vertigo, Neurologocal Cancer HEENT: History of: Ear Problem (HEARING DIFFICULTY), Eye Problem (GLASSES) Endocrine: No history of: Adrenal Disease, Diabetes Mellitus (IDDM), Diabetes Mellitus ( NIDDM), Dyslipidemia, Thyroid Disorder, Endocrine Cancer, Endocrine Problems Rheumatology: History of;: Systemic Lupus Erythematosus No history of;: Psoriasis, Sjogrens Respiratory: History of: Pulmonary Hypertension (2013) No history of: Asthma, Bronchitis, COPD, Intubation, Obstructive Sleep Apnea , Pulmonary Embolism, Pneumonia, Lung Cancer Renal: History of: Dialysis (hemodialysis), Renal Failure, Renal Problems ( KIDNEY DISEASE;) No history of: Renal (Kidney) Cancer Genitourinary: No history of: Bladder Problem, Kidney Stones, Recurring Urinary Tract Infections, Genitourinary Cancer, Problems Gastrointestinal: History of: GERD No history of: Bowel Obstruction, Clostridium Difficile, Crohn's Disease, Diverticulitis/ Diverticulosis, Esophageal Varices, Gastrointestinal Bleed, Hemorrhoids, Hematochezia, Hepatitis, Liver Problems, Pancreatitis, Polyps, Ulcerative Colitis, Gastrointestinal Cancer, GI Problems Musculoskeletal: History of: Osteoporosis No history of: Amputation Hematology: History of: Anemia, Clotting Problems (BLOOD CLOTS IN LUNG) Reproductive: History of: Reproductive Problems (1 MISSCARIAGE) Other: History of: Anesthesia Reactions (PT STATES SHE COULD NOT FEEL LEGS FOR 3 DAYS AFTER PAST ANESTHESIA) No history of: Cancer, Eczema, HIV, Malignant Hyperthermia, Vancomycin- Resistant Enterococci, Skin Problems - Surgical History Cardiac Surgeries: Patient Denies: Femoral-Popliteal Bypass Graft, Cardiac Catheterization, Cardiac Surgery, Carotid Endarterectomy, Internal Defibrillator, Vascular Access Devices Thoracic Surgeries: Patient denies;: Lithotripsy, Nephrectomy Neurologic Surgeries: Patient denies: Brain Aneurysm, Cerebral Hemorrhage HEENT Surgeries: Patient denies: Carotid Endarterectomy, Thyroid Surgery Abdominal Surgeries: Surgical HX of: Abdominal Surgery, Cholecystectomy Patient denies: Appendectomy, Colonoscopy, Gastric Bypass Surgery, EGD, Hernia Repair, Splenectomy Reproductive Surgeries: Surgical HX of;: Section (3 C SECTIONS), Dilation and Curettage, Genitourinary Surgery (KIDNEY BIOPSY), Gynecologic Surgery Patient denies;: Cystoscopy Orthopedic Surgeries: Surgical HX of;: Total Hip Replacement (LEFT HIP REVISION 2005, Right hip revision 2016) - Family History Family History: Reports;: Family Cancer (DAD), Family Heart Disease (MOM CHF), Family Hypertension (MOM AND DAD) - Social History Smoking Status: Never smoker Frequency of Alcohol Use: None Type of Drug Use: None Review of Systems Constitutional: fatigue, no fever(s) Nose, mouth and throat: no dysphagia Cardiovascular: chest pain at rest (Which is now resolved), dyspnea Gastrointestinal: no abdominal pain Exam - Vital Signs Vital signs: Period Temp Pulse Resp BP Sys/Murdock Pulse Ox Last 24 Hr 96.9 F-97.8 F 62-85 17-22 133-164/73-109 98-100 - General Appearance General appearance: well-developed, well-nourished Respiratory: clear Cardiology: regular rate, regular rhythm Gastrointestinal: no tenderness Neurologic: alert and oriented x3 Musculoskeletal: no clubbing Results - Labs CBC & BMP: 07/03/17 18:34 07/03/17 18:34 Assessment and Plan (1) HTN (hypertension) Status: Chronic Current Visit: No (2) Lupus Status: Chronic Current Visit: Yes (3) ESRD (end stage renal disease) on dialysis Status: Chronic Assessment and plan: Continue with scheduled hemodialysis. Current Visit: Yes Specialty Discharge - Follow Up or Referrals
--- NOTE | 2017-07-04 17:19 | Order Completion Report ---
See report scanned to EMR
[2017-07-06] MEDS ORDERED: fentaNYL 25 MCG/HR PATCH TRANSDERM SCH (09:00)
--- NOTE | 2017-07-09 05:26 | Order Completion Report ---
See report scanned to EMR
== END 2017-07-04 15:05 | disposition home or self-care (01) ==
LOC: N.ED 17:25 → N.TELEN 17:25 → SUATTDRO 21:36 → N.TELEN 22:51
PROVIDERS: ADMIT Internal Medicine; ATTEND Family Medicine

== ENCOUNTER 2018-05-30 17:07 | Inpatient (IN) ==
[2018-05-30] MEDS ORDERED: LOPERAMIDE 2 MG CAPSULE ONE (19:02)
[2018-05-30] MEDS ORDERED: ONDANSETRON 4 MG/2 ML VIAL ONE (19:02)
[2018-05-30] MEDS ORDERED: LOPERAMIDE 2 MG CAPSULE PO STA (19:17)
[2018-05-30] MEDS ORDERED: ONDANSETRON 4 MG/2 ML VIAL IV STA (19:17)
[2018-05-30 19:27] LABS: Basophils % 0.3 % (0.0-0.8); Eosinophils # 0.1 10*3/uL (0.0-0.87); Eosinophils % 0.6 % (0.00-10.9); Hemoglobin 9.4 GM/DL (12.0-16.0); Immature Granulocytes % 0.9 %; Immature Granulocytes Absolute 0.13 #; Lymphocytes % 13.2 % (21.3-54.2); Mean Corpuscular HGB Conc 30.3 GM/DL (32-36); Mean Corpuscular Hemoglobin 30 PG (27-34); Mean Corpuscular Volume 97.5 FL (87-102); Mean Platelet Volume 11.6 FL (9.6-12.0); Monocytes # 0.9 10*3/uL (0.11-0.8); Monocytes % 5.8 % (1.7-12.7); NRBC # 0.02 10*3/uL; Neutrophils # 11.7 10*3/uL (1.4-7.4); Neutrophils % 79.2 % (38.7-73.9); Platelet Count 167 T/CUMM (130-400); Red Blood Count 3.18 MC/CUMM (3.8-5.5); Red Cell Distribution Width 17.1 % (9.3-17.3); White Blood Count 14.8 T/CUMM (4-12)
[2018-05-30 19:40] LABS: Alanine Aminotransferase 17 U/L (13-56); Albumin 2.9 G/DL (3.4-5.0); Alkaline Phosphatase 268 U/L (45-117); Aspartate Amino Transferase 17 U/L (0-37); Blood Urea Nitrogen 21 MG/DL (7-18); Calcium 8.4 MG/DL (8.5-10.1); Glucose 98 MG/DL (74-106); Osmolality,Calculated 264.7 MOS/KG (273-304); Potassium 3.9 MMOL/L (3.5-5.1); Sodium 131 MMOL/L (136-145); Total Protein 7.3 G/DL (6.4-8.3)
[2018-05-30 19:41] LABS: Troponin I 0.186 NG/ML (0.00-0.045)
[2018-05-30] MEDS ORDERED: ONDANSETRON 4 MG/2 ML VIAL IV PRN (20:05)
[2018-05-30] MEDS ORDERED: LORATADINE 10 MG TABLET PO PRN (20:16)
[2018-05-30] MEDS ORDERED: DOPamine 800 MG/250 ML PREMIX IV PRN (20:28)
[2018-05-30] MEDS ORDERED: SEVELAMER CARBONATE 800 MG TABLET PO SCH (20:30)
[2018-05-30] MEDS ORDERED: LIDOCAINE 1% 20 ML VIAL MISC INJ ONE (22:54)
[2018-05-30] MEDS ORDERED: MELATONIN 3 MG TABLET PO SCH (23:00)
[2018-05-30] MEDS: CALCITRIOL 0.25 MCG CAPSULE PO SCH (23:38)
[2018-05-30] MEDS: HYDROXYCHLOROQUINE 200 MG TABLET PO SCH (23:38)
[2018-05-30] MEDS: traZODone 50 MG TABLET PO SCH (23:38)
[2018-05-30] MEDS: NOREPINEPHRINE 8 MG in SODIUM CHLORIDE 0.9% 242 ML IV PRN (23:50)
[2018-05-31] MEDS: NON-FORMULARY MEDICATION (Vortioxetine Hydrobromide [Trintellix] 10 MG) PO SCH ×2 (00:20→21:35)
[2018-05-31] MEDS ORDERED: MELATONIN 3 MG TABLET PO SCH (00:31)
[2018-05-31] MEDS: MELATONIN 3 MG TABLET PO SCH ×2 (01:03→22:30)
[2018-05-31 04:21] LABS: Basophils # 0.1 10*3/uL (0.0-0.2); Basophils % 0.4 % (0.0-0.8); Eosinophils # 0.2 10*3/uL (0.0-0.87); Eosinophils % 1.7 % (0.00-10.9); Hematocrit 33.2 VOL% (35.7-47.0); Hemoglobin 9.9 GM/DL (12.0-16.0); Immature Granulocytes % 1.2 %; Immature Granulocytes Absolute 0.17 #; Lymphocytes # 3.2 10*3/uL (1.4-4.0); Lymphocytes % 22.8 % (21.3-54.2); Mean Corpuscular HGB Conc 29.8 GM/DL (32-36); Mean Corpuscular Hemoglobin 29 PG (27-34); Mean Corpuscular Volume 97.9 FL (87-102); Mean Platelet Volume 11.7 FL (9.6-12.0); Monocytes # 1.2 10*3/uL (0.11-0.8); Monocytes % 8.7 % (1.7-12.7); NRBC # 0.07 10*3/uL; Neutrophils # 9.3 10*3/uL (1.4-7.4); Neutrophils % 65.2 % (38.7-73.9); Platelet Count 172 T/CUMM (130-400); Red Blood Count 3.39 MC/CUMM (3.8-5.5); Red Cell Distribution Width 17.2 % (9.3-17.3); White Blood Count 14.2 T/CUMM (4-12)
[2018-05-31 04:48] LABS: Osmolality,Calculated 268.5 MOS/KG (273-304); Potassium 3.8 MMOL/L (3.5-5.1)
[2018-05-31] MEDS: ACETAMINOPHEN 325 MG TABLET PO PRN ×2 (05:41→19:54)
[2018-05-31] MEDS ORDERED: VANCOMYCIN INJ 500 MG in SODIUM CHLORIDE 0.9% 100 ML IV PRN (06:22)
[2018-05-31] MEDS ORDERED: VANCOMYCIN INJ 1,500 MG in SODIUM CHLORIDE 0.9% 500 ML IV ONE (06:30)
[2018-05-31] MEDS: PIPERACILLIN/TAZOBACTAM 3,375 MG in SODIUM CHLORIDE 0.9% 100 ML IV SCH ×2 (06:32→18:29)
[2018-05-31] MEDS ORDERED: ENOXAPARIN 30 MG/0.3 ML SYRINGE SUBCUT SCH (09:00)
[2018-05-31] MEDS ORDERED: PRORENAL D PO SCH (09:00)
[2018-05-31] MEDS ORDERED: PANTOPRAZOLE 40 MG TABLET PO SCH (09:00)
[2018-05-31] MEDS ORDERED: CINACALCET 30 MG TABLET PO SCH (09:00)
[2018-05-31] MEDS ORDERED: POTASSIUM CHLORIDE 20 MEQ TABLET PO SCH (09:00)
[2018-05-31] MEDS ORDERED: predniSONE 5 MG TABLET PO SCH (09:00)
[2018-05-31] MEDS ORDERED: FERROUS FUMARATE PO SCH (09:00)
[2018-05-31] MEDS: HYDROXYCHLOROQUINE 200 MG TABLET PO SCH ×2 (09:03→21:33)
[2018-05-31] MEDS: SEVELAMER CARBONATE 800 MG TABLET PO SCH ×3 (09:03→17:12)
[2018-05-31] MEDS: CALCITRIOL 0.25 MCG CAPSULE PO SCH ×3 (09:04→21:33)
[2018-05-31] MEDS: NOREPINEPHRINE 8 MG in SODIUM CHLORIDE 0.9% 242 ML IV PRN ×3 (09:19→20:40)
[2018-05-31] MEDS: oxyCODONE IR 5 MG TABLET PO PRN ×2 (14:32→21:31)
[2018-05-31] MEDS ORDERED: DEXTROSE 50% 25 GM/50 ML VIAL IV PRN (15:37)
[2018-05-31] MEDS ORDERED: GLUCAGON 1 MG VIAL IM PRN (15:37)
[2018-05-31] MEDS ORDERED: SODIUM CHLORIDE 0.9% 1,000 ML IV SCH (16:00)
[2018-05-31 19:00] VITALS: BP 99/51
[2018-05-31] MEDS ORDERED: CHLORHEXIDINE 0.12% ORAL RINSE 60 ML BOTTLE SWISH/SPIT SCH (21:00)
[2018-05-31] MEDS ORDERED: VANCOMYCIN INJ 500 MG in SODIUM CHLORIDE 0.9% 100 ML IV ONE (21:00)
[2018-05-31] MEDS ORDERED: CHLORHEXIDINE 4% SOLN 118 ML BOTTLE TOP SCH (21:00)
[2018-05-31] MEDS: traZODone 50 MG TABLET PO SCH (22:30)
[2018-05-31] MEDS ORDERED: ETOMIDATE 20 MG/10 ML VIAL IV ONE (23:29)
[2018-05-31] MEDS ORDERED: SUCCINYLCHOLINE 200 MG/10 ML VIAL ONE (23:30)
[2018-05-31] MEDS ORDERED: AMIODARONE 150 MG/3 ML VIAL ONE (23:43)
[2018-06-01] MEDS ORDERED: ATROPINE 1 MG/10 ML SYRINGE ONE (00:03)
[2018-06-01] MEDS ORDERED: EPINEPHrine 1 MG/ML VIAL ONE (00:04)
[2018-06-01] MEDS ORDERED: CEFUROXIME INJ 1,500 MG in SYRINGE 1 EACH IV ONE (05:00)
[2018-06-01] MEDS: PIPERACILLIN/TAZOBACTAM 3,375 MG in SODIUM CHLORIDE 0.9% 100 ML IV SCH (06:14)
== END 2018-06-01 00:08 | disposition expired | DRG 871 ==
LOC: N.ED 17:07 → SUATTDRO 20:05 → N.EDINP 20:05 → N.CC 22:20
PROVIDERS: ADMIT Hospitalist; ATTEND Internal Medicine Geriatric Medicine